=== PATIENT | male | born 1950 | race Caucasian/White ===

== ENCOUNTER 2016-06-12 08:55 | Outpatient (CLI) | payer MEDICAID ==
[~2016-06-12 08:55] MED LIST: FERRIC CARBOXYMALTOSE 750 MG in NORMAL SALINE 250 ML IV PRN; NORMAL SALINE 250 ML IV PRN
[2016-06-12 09:18] VITALS: BP 140/84
== END 2016-06-12 09:46 | disposition home or self-care (01) ==
LOC: II 08:55
PROVIDERS: ATTEND Internal Medicine
PROC: 3E033GC Introduction of Other Therapeutic Substance into Peripheral Vein, Percutaneous Approach (ICD-10-PCS; principal; 2016-06-12)
DX: D50.8 Other iron deficiency anemias (principal); K90.9 Intestinal malabsorption, unspecified
CPT/HCPCS: 96374; J7050; J1439; 96365

== ENCOUNTER → 2016-08-07 | Outpatient (CLI) | payer MEDICAID | LOC: RAD 07:32 | PROVIDERS: ATTEND Internal Medicine | DX: C34.11 Malignant neoplasm of upper lobe, right bronchus or lung (principal) | CPT/HCPCS: 71250; 74176 ==

== ENCOUNTER → 2016-09-19 | Outpatient (CLI) | payer MEDICARE, MEDICAID | LOC: RAD 08:25 | PROVIDERS: ATTEND Internal Medicine | DX: C34.11 Malignant neoplasm of upper lobe, right bronchus or lung (principal) | CPT/HCPCS: 78815; A9552 ==

== ENCOUNTER → 2017-02-15 | Outpatient (CLI) | payer MEDICAID, MEDICARE ==
--- NOTE | 2017-02-16 10:19 | RADIOLOGY REPORT (SQ) ---
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 TECHNIQUE: Blood glucose level was verified. Above dose of FDG was injected intravenously. 2-D seg mented attenuation correction images were obtained from the base of the skull to the midthighs. Nonc ontrast CT images were obtained for attenuation correction and fusion with emission images. CT image s were performed without oral or intravenous contrast and are not sensitive for parenchymal lesions. A series of overlapping emission PET images were obtained. Images reviewed and manipulated at [facility] by the radiologist. Images stored on PACS. LIMITATIONS: None. FINDINGS: HEAD AND NECK: No areas of abnormal metabolic activity in the soft tissues of the head and neck. CHEST: Bandlike scarring in the right upper lobe adjacent to the apical segmental bronchus, smaller i n size and decreased in metabolic activity compared to PET-CT 09/06/2016. Currently this measures 3.5 x 1.6 cm on axial image 61, with SUV 2.6 (was 4.8 x 2 cm with SUV 3.1 on 09/06/2016). No metabolically active hilar or mediastinal lymph nodes. ABDOMEN AND PELVIS: There is diffuse colon uptake worrisome for active inflammatory bowel disease, co lonic activity measures between 5 and 8 SUV from the cecum to the rectum. There is loss of haustra, findings may represent chronic ulcerative colitis. PROXIMAL LOWER EXTREMITIES: Over the right gluteal region, a chronic seroma is present. Along the mathis perior and lateral edge of the seroma, a 3.5 x 2.3 cm more solid-appearing nodule is present on axial image 163. This has SUV of 3.1. This represents a change from previous studies BONES: No abnormal metabolic activity in the visualized skeleton. ADDITIONAL CT FINDINGS: Small right pleural effusion, new compared to previous exams. Stable calcifi ed carotid bifurcations and coronary arteries. Old healed right rib fractures. OTHER: Liver baseline SUV 2.6. Blood pool baseline SUV 1.8. IMPRESSION: Decrease in size and metabolic activity of the right upper lobe mass compared to previou s studies. Diffuse abnormal: Increased uptake, worrisome for diffuse colitis Soft tissue nodule along the superior and lateral aspect of the right gluteal region seroma/hematoma. This now has metabolic activity SUV 3.1. TECHNICAL DOCUMENTATION: JOB ID: [id number] [employer]- All Rights Reserved
== END ==
LOC: RAD 15:12
PROVIDERS: ATTEND Internal Medicine
DX: C34.11 Malignant neoplasm of upper lobe, right bronchus or lung (principal)
CPT/HCPCS: 78815; A9552

== ENCOUNTER → 2017-05-26 | Outpatient (CLI) | payer MEDICARE, MEDICAID ==
--- NOTE | 2017-05-27 10:24 | RADIOLOGY REPORT (SQ) ---
EXAM DESCRIPTION: PET CT SKULL/THIGH COMPLETED DATE/TIME: 05/26/2017 8:08 pm REASON FOR STUDY: LUNG CA C34.11 MALIGNANT NEOPLASM OF UPPER LOBE, RIGHT BRONCHUS OR L COMPARISON: PET-CT 02/15/2017, 09/19/2016, 04/28/2016 CT chest abdomen pelvis 08/07/2016 RADIONUCLIDE AND DOSE: 9.7 mCi F18 FDG The route of agent administration: Intravenous FASTING BLOOD SUGAR: 90 mg/dl CONTRAST TYPE AND DOSE: No CT contrast given. TECHNIQUE: Blood glucose level was verified. Above dose of FDG was injected intravenously. 2-D seg mented attenuation correction images were obtained from the base of the skull to the midthighs. Nonc ontrast CT images were obtained for attenuation correction and fusion with emission images. CT image s were performed without oral or intravenous contrast and are not sensitive for parenchymal lesions. A series of overlapping emission PET images were obtained. Images reviewed and manipulated [facility] by the radiologist. Images stored on PACS. LIMITATIONS: None. FINDINGS: HEAD AND NECK: No areas of abnormal metabolic activity in the soft tissues of the head and neck. CHEST: Persistent right upper lobe bandlike scarring is present, 3.3 x 1.6 cm in size on axial image 50 with SUV of 2.7 to 2.8. This is stable compared to 02/15/2017, and significantly smaller than on and 04/28/2016. There is a small right pleural effusion without right sided pleural activity. Several small prevascu lar, paratracheal, precarinal, and subcarinal lymph nodes are present, non metabolically active and l ess than 1 cm in short axis. ABDOMEN AND PELVIS: There is diffuse colonic activity worrisome for chronic colitis, ranging from 4 t o 11 SUV. There is bandlike increased activity in the right inguinal region along the scan and subcutaneous fat , along an area about 7 x 1 cm in size. This has increased uptake of 6.8 to 7.2. This is new compar ed to 09/19/2016. This was present although less intense on 02/15/2017, I thought this may have repres ented contamination on the skin from urine containing residual FDG activity. There is a 8 4.2 x 2.3 cm nodule along the left perineum along the skin, axial image 240 with SUV 12. 4. This is new compared to 09/19/2016. This is more prominent than on 02/15/2017 PET-CT, where I thou ght this was skin contamination from FDG in the urine. There is a chronic seroma over the right gluteal region with minimal metabolic activity along its sup erior aspect, with SUV 3.9. This is similar compared to prior PET-CT 02/15/2017. There are adjacent small subcutaneous nodules in the right upper gluteal region on axial image 148 and 154 which are non metabolic. PROXIMAL LOWER EXTREMITIES: No areas of abnormal metabolic activity in the soft tissues of the lower extremities. BONES: No abnormal metabolic activity in the visualized skeleton. ADDITIONAL CT FINDINGS: Liver background activity 2.6 SUV. Blood pool background activity 2.2 SUV OTHER: No other significant findings. IMPRESSION: Stable appearance of the right upper lobe lung apex in the area of prior tumor, as jass red to 02/15/2017 and 09/06/2016 Small right pleural effusion, no right pleural increased metabolic activity Diffuse abnormal colonic activity worrisome for chronic colitis Right inguinal and perineal skin hypermetabolic lesions of uncertain etiology Stable minimal increased metabolic activity along superior edge of the right gluteal seroma TECHNICAL DOCUMENTATION: JOB ID: [id number] [employer]- All Rights Reserved
== END ==
LOC: RAD 15:59
PROVIDERS: ATTEND Internal Medicine
DX: C34.11 Malignant neoplasm of upper lobe, right bronchus or lung (principal)
CPT/HCPCS: 78815; A9552

== ENCOUNTER → 2017-08-21 | Outpatient (CLI) | payer MEDICARE, MEDICAID ==
--- NOTE | 2017-08-21 11:40 | RADIOLOGY REPORT (SQ) ---
EXAM DESCRIPTION: CT CHEST WITHOUT COMPLETED DATE/TIME: 08/21/2017 10:42 am REASON FOR STUDY: C34.11 MALIGNANT NEOPLASM OF UPPER LOBE, RIGHT BRONCHUS OR LUNG C34.11 MALIGNANT NEOPLASM OF UPPER LOBE, RIGHT BRONCHUS OR L COMPARISON: 08/07/2016 TECHNIQUE: CT scan performed of the chest without intravenous contrast. Images reviewed with lung, soft tissue and bone windows. Reconstructed coronal and sagittal MPR images reviewed. All images st ored on PACS. All CT scanners at this facility use dose modulation, iterative reconstruction, and/or weight based d osing when appropriate to reduce radiation dose to as low as reasonably achievable (ALARA). [facility]: Dose Right [facility]: CareDose [facility]: Dose Right [facility]: Teradose 4D [facility]: [employer] RADIATION DOSE: CT Rad equipment meets quality standard of care and radiation dose reduction techniq ues were employed. CTDIvol: 15.3 mGy. DLP: 557 mGy-cm. mGy. LIMITATIONS: No technical limitations. FINDINGS: LUNGS AND PLEURA: There is a small right pleural effusion. There is a mass in the right u pper lobe that extends to the hilum. This shows improvement compared to the earlier study at this ti me and there is the appearance of soft tissue density that somewhat surrounds the portion of aerated lung. This is seen on image 20 and image 21. The anterior portion of this density on image 21 measu res 32 mm in transverse diameter versus 20 mm in AP diameter. The smaller density more posteriorly l ocated measures 11 x 20 mm on image 20. As stated above, both of these areas of density become confl uent with the right hilum. On the coronal and sagittal images improvement can be seen. Present in i mage 57 there is a spiculated nodule that measures 25 x 21 mm and is associated with the fissure. On the lung window settings this shows a density of 35 Hounsfield units. This abuts the dome of the di aphragm. This is not identified on the earlier study. There are no findings in left lung. HILAR AND MEDIASTINAL STRUCTURES: No significant hilar or mediastinal adenopathy is appreciated. HEART AND VASCULAR STRUCTURES: No aneurysm. No pericardial effusion. UPPER ABDOMEN: No significant findings. Limited exam. THYROID AND OTHER SOFT TISSUES: No masses. No adenopathy. BONES: No obvious osseous metastases are present. HARDWARE: None in the chest. OTHER: No other significant findings. IMPRESSION: There is somewhat of a mixed picture. The primary mass in the right upper lobe is small er. However, there is is 2nd area of density posterior to the mass as described which represents a n ew finding. There is also a density associated with the fissure that abuts the right hemidiaphragm t hat is not identified on the prior study. There is also a small right pleural effusion. Overall the re is a worsening of disease. Consider PET-CT. TECHNICAL DOCUMENTATION: JOB ID: [id number] Quality ID # [id number]: Final reports with documentation of one or more dose reduction techniques (e.g., Au tomated exposure control, adjustment of the mA and/or kV according to patient size, use of iterative reconstruction technique) 2010 [employer]- All Rights Reserved Reading location - IP/workstation name: [email or web address]
== END ==
LOC: RAD 10:34
PROVIDERS: ATTEND Internal Medicine
DX: C34.11 Malignant neoplasm of upper lobe, right bronchus or lung (principal)
CPT/HCPCS: 71250

== ENCOUNTER → 2017-08-30 | Outpatient (CLI) | payer MEDICARE, MEDICAID ==
--- NOTE | 2017-09-01 09:06 | RADIOLOGY REPORT (SQ) ---
EXAM DESCRIPTION: PET CT SKULL/THIGH COMPLETED DATE/TIME: 08/31/2017 6:37 pm REASON FOR STUDY: LUNG CA (C34.11) C34.11 MALIGNANT NEOPLASM OF UPPER LOBE, RIGHT BRONCHUS OR L COMPARISON: 05/26/2017 RADIONUCLIDE AND DOSE: 9.5 mCi F18 FDG The route of agent administration: Intravenous FASTING BLOOD SUGAR: 96 mg/dl CONTRAST TYPE AND DOSE: No CT contrast given. TECHNIQUE: Blood glucose level was verified. Above dose of FDG was injected intravenously. 2-D seg mented attenuation correction images were obtained from the base of the skull to the midthighs. Nonc ontrast CT images were obtained for attenuation correction and fusion with emission images. CT image s were performed without oral or intravenous contrast and are not sensitive for parenchymal lesions. A series of overlapping emission PET images were obtained. Images reviewed and manipulated at [facility] work station by the radiologist. Images stored on PACS. LIMITATIONS: None. FINDINGS: HEAD AND NECK: No areas of abnormal metabolic activity in the soft tissues of the head and neck. CHEST: Stable area of scarring right upper lobe with SUV in the 2.5 range. No hypermetabolic or path ologically enlarged lymph nodes. Stable small right pleural effusion. ABDOMEN AND PELVIS: Diffuse colonic activity is unchanged. PROXIMAL LOWER EXTREMITIES: No areas of abnormal metabolic activity in the soft tissues of the lower extremities. BONES: No abnormal metabolic activity in the visualized skeleton. ADDITIONAL CT FINDINGS: Small chronic seroma over the right gluteal region, not significantly hyperme tabolic. OTHER: No other significant findings. IMPRESSION: Stable appearance of the right upper lobe. No evidence of metastatic disease. TECHNICAL DOCUMENTATION: JOB ID: [id number]- All Rights Reserved Reading location - IP/workstation name: [email or web address]
== END ==
LOC: RAD 16:40
PROVIDERS: ATTEND Internal Medicine
DX: C34.11 Malignant neoplasm of upper lobe, right bronchus or lung (principal)
CPT/HCPCS: 78815; A9552

== ENCOUNTER 2017-11-24 08:16 | Day surgery (SDC) | payer MEDICARE, MEDICAID ==
[~2017-11-24 08:16] MED LIST changes: +FENTANYL CITRATE INJ/PF 100 MCG/2 ML AMPUL ONE; -FERRIC CARBOXYMALTOSE 750 MG in NORMAL SALINE 250 ML IV PRN; +KETOROLAC TROMETHAMINE 0.45% 4 DROP/0.4 ML DROPERETTE OD PRN; +MIDAZOLAM 2 MG/2 ML INJ ONE; -NORMAL SALINE 250 ML IV PRN
[2017-11-24] MEDS ORDERED: ALBUTEROL SULFATE 0.083% NEB 2.5 MG/3 ML AMPUL NEB ONE (08:41)
[2017-11-24] MEDS: CYCLOPENTOLATE 0.2%/PHENYLEPHRINE 1% OPH SOLN 2 ML OD PRN ×3 (08:42→09:03)
[2017-11-24] MEDS: TROPICAMIDE 1% OPH SOLN 3 ML OD PRN ×3 (08:42→09:03)
[2017-11-24] MEDS: BESIFLOXACIN HCL 0.6% OPH SUSP 5 ML BOTTLE OD PRN ×4 (08:42→09:46)
[2017-11-24] MEDS: TETRACAINE HCL 0.5% OPH SOLN 0.6 ML DROPERETTE OD PRN ×3 (08:43→09:08)
[2017-11-24] MEDS: LIDOCAINE 4% INJ/PF (40 MG/ML) 5 ML AMPUL OD PRN ×2 (09:11)
[2017-11-24] MEDS: BUPIVACAINE HCL 0.75% INJ/PF (7.5 MG/1 ML) 10 ML SDV OD PRN ×2 (09:11)
[2017-11-24] MEDS: CHONDR SU A NA/HYALUR INTRAOC KIT (SURGICARE) ONE ×2 (09:32)
[2017-11-24] MEDS: EPINEPHRINE INJ/PF 1 MG/1 ML AMPULE ONE ×2 (09:32)
[2017-11-24] MEDS: LIDOCAINE 1%/PHENYLEPHRINE 1.5% 1 ML VIAL ONE ×2 (09:32)
[2017-11-24] MEDS ORDERED: LIDOCAINE 2% INJ-PF (20 MG/ML) 10 ML AMPUL ONE (09:52)
--- NOTE | 2017-11-24 15:20 | [facility] OPERATIVE REPORT E ---
[facility] Operative Report NAME: FRANCESCO MARIANO AGE: 67Y DATE OF SURGERY: 11/24/2017 ROOM: PREOPERATIVE DIAGNOSIS: CATARACT, RIGHT EYE. POSTOPERATIVE DIAGNOSIS: CATARACT, RIGHT EYE. OPERATION: Phacoemulsification with posterior chamber intraocular lens, right eye. SURGEON: BLANK PHILLIPS M.D. ANESTHESIA: Topical with MAC. INDICATIONS FOR SURGERY: Difficulty reading and seeing people's faces. Best correct visual acuity 20/80. PROCEDURE: The patient was brought to the Operating Room and placed on the operative table. Following tetracaine drops, topical anesthesia was administered. This consisted of instrument wipe pledgets soaked in a solution of 4% Xylocaine mixed with 0.75% Marcaine in a 1:2 ratio. A 2 x 1 cm pledget was placed in the superior fornix. A 1 x 1 cm pledget was placed in the inferior fornix. The eye was patched shut for 5 minutes. The patch was removed. The eye was sterilely prepped and draped in the usual manner. Lid speculum was placed in the eye. The pledgets were removed. 4-0 black silk sutures were placed around the superior and the inferior rectus muscles to be used as traction. A conjunctival peritomy was made at the 10 o'clock position. Hemostasis was obtained with bipolar cautery. A posterior limbal groove was created using a crescent knife and dissected anteriorly towards the cornea. A sharp point blade was used to create a paracentesis site at the 2 o'clock position. A 2.4 mm keratome was used to enter the anterior chamber through the groove. Viscoelastic was injected into the anterior chamber. An anterior capsulotomy was performed using Utrata forceps in a capsulorrhexis fashion. Hydrodissection and hydrodelineation were performed. Phacoemulsification was performed in apsydj-oat-arnvbgn technique. A total of 5.59 CDE was used. Following this, the I/A unit was used to remove residual cortex. Viscoelastic was injected into the capsular bag. Intraocular lens model [id number], 20.0 diopters, serial number [id number] was placed in the capsular bag. The I/A unit was used to remove residual viscoelastic. The wound was seen to be watertight under high and low pressure, and no sutures were placed. The intraocular lens was well centered. The pressure was adjusted in the eye to normal pressure. The 4-0 black silk sutures and lid speculum were removed. The eye was shielded after Besivance drops were placed. The patient tolerated the procedure well and was sent to the Recovery Room in good condition. DICTATING PHYSICIAN: BLANK PHILLIPS M.D. DICTATING PHYSICIAN: BLANK PHILLIPS M.D. [id number] PHY#: [id number] ID: [id number] JOB#: [id number] ACCT: [id number] cc:BLANK PHILLIPS M.D. >
--- NOTE | 2017-11-24 15:21 | [facility] DISCHARGE SUMMARY E ---
[facility] Discharge Summary NAME: FRANCESCO MARIANO AGE: 67Y ADMITTED: 11/24/2017 DISCHARGED: 11/24/2017 HOSPITAL COURSE: This patient is a 67-year-old gentleman who underwent an uneventful cataract extraction with intraocular lens implant, right eye, on 11/24/2017. He will be discharged to home. He is instructed to resume preoperative medications, to take Tylenol as needed for discomfort, to keep his eye shielded, to use Besivance, Durezol and Ilevro at 3 p.m. and 8 p.m., and to follow up in my office in 1 day. DICTATING PHYSICIAN: BLANK PHILLIPS M.D. [id number] PHY#: [id number] ID: [id number] JOB#: [id number] ACCT: [id number] cc:BLANK PHILLIPS M.D. >
== END 2017-11-24 10:34 | disposition home or self-care (01) ==
LOC: SC 08:16
PROVIDERS: ATTEND Ophthalmology
DX: H25.13 Age-related nuclear cataract, bilateral (principal); H40.053 Ocular hypertension, bilateral; H57.03 Miosis; E11.9 Type 2 diabetes mellitus without complications; E78.00 Pure hypercholesterolemia, unspecified; J44.9 Chronic obstructive pulmonary disease, unspecified; Z87.891 Personal history of nicotine dependence; Z79.84 Long term (current) use of oral hypoglycemic drugs; Z79.899 Other long term (current) drug therapy; Z79.51 Long term (current) use of inhaled steroids; Z88.1 Allergy status to other antibiotic agents; Z85.118 Personal history of other malignant neoplasm of bronchus and lung
CPT/HCPCS: 66984; 82962; V2632; J2250; J3490 ×4; A9270 ×2; J0171; J3010; J2370; 142

== ENCOUNTER → 2017-11-30 | Outpatient (CLI) | payer MEDICARE, MEDICAID ==
--- NOTE | 2017-11-30 10:46 | RADIOLOGY REPORT (SQ) ---
EXAM DESCRIPTION: CT CHEST WITHOUT COMPLETED DATE/TIME: 11/30/2017 9:00 am REASON FOR STUDY: LUNG CA (C34.11) C34.11 MALIGNANT NEOPLASM OF UPPER LOBE, RIGHT BRONCHUS OR L COMPARISON: 08/21/2017 and priors TECHNIQUE: CT scan performed of the chest without intravenous contrast. Images reviewed with lung, soft tissue and bone windows. Reconstructed coronal and sagittal MPR images reviewed. All images st ored on PACS. All CT scanners at this facility use dose modulation, iterative reconstruction, and/or weight based d osing when appropriate to reduce radiation dose to as low as reasonably achievable (ALARA). [facility]: Dose Right [facility]: CareDose [facility]: Dose Right [facility]: Teradose 4D [facility]: [employer] RADIATION DOSE: CT Rad equipment meets quality standard of care and radiation dose reduction techniq ues were employed. CTDIvol: 17.6 mGy. DLP: 639 mGy-cm. mGy. LIMITATIONS: No technical limitations. FINDINGS: LUNGS AND PLEURA: Stable right upper lobe mass and postradiation changes in the right hilu m. The density described previously in the right upper lobe is also stable. Interval PET-CT without metabolic activity in this area. Suggests findings related to treatment rather than new disease. R ight pleural effusions stable. HILAR AND MEDIASTINAL STRUCTURES: No identified masses or abnormal nodes. No obvious aneurysm. HEART AND VASCULAR STRUCTURES: Extensive coronary artery calcification. UPPER ABDOMEN: No significant findings. Limited exam. THYROID AND OTHER SOFT TISSUES: No masses. No adenopathy. BONES: No significant finding. HARDWARE: None in the chest. OTHER: No other significant findings. IMPRESSION: Stable appearance of the CT scan since the prior study. Interval negative PET-CT sugges anne findings are related to treatment rather than recurrent disease. Extensive coronary artery calcification. TECHNICAL DOCUMENTATION: JOB ID: [id number] Quality ID # 436: Final reports with documentation of one or more dose reduction techniques (e.g., Au tomated exposure control, adjustment of the mA and/or kV according to patient size, use of iterative reconstruction technique) 2010 [employer]- All Rights Reserved Reading location - IP/workstation name: [email or web address]
== END ==
LOC: RAD 08:39
PROVIDERS: ATTEND Physician Assistant Medical
DX: C34.11 Malignant neoplasm of upper lobe, right bronchus or lung (principal)
CPT/HCPCS: 71250

== ENCOUNTER 2017-12-15 09:11 | Day surgery (SDC) | payer MEDICARE, MEDICAID ==
[~2017-12-15 09:11] MED LIST changes: -FENTANYL CITRATE INJ/PF 100 MCG/2 ML AMPUL ONE; -KETOROLAC TROMETHAMINE 0.45% 4 DROP/0.4 ML DROPERETTE OD PRN; +KETOROLAC TROMETHAMINE 0.45% 4 DROP/0.4 ML DROPERETTE OS PRN; -MIDAZOLAM 2 MG/2 ML INJ ONE
[2017-12-15] MEDS: TETRACAINE HCL 0.5% OPH SOLN 0.6 ML DROPERETTE OS PRN ×2 (10:02→10:27)
[2017-12-15] MEDS: TROPICAMIDE 1% OPH SOLN 3 ML OS PRN ×3 (10:03→10:26)
[2017-12-15] MEDS: CYCLOPENTOLATE 0.2%/PHENYLEPHRINE 1% OPH SOLN 2 ML OS PRN ×3 (10:03→10:26)
[2017-12-15] MEDS: BESIFLOXACIN HCL 0.6% OPH SUSP 5 ML BOTTLE OS PRN ×4 (10:04→11:18)
[2017-12-15] MEDS ORDERED: ALBUTEROL SULFATE 0.083% NEB 2.5 MG/3 ML AMPUL NEB ONE (10:09)
[2017-12-15] MEDS ORDERED: FENTANYL CITRATE INJ/PF 100 MCG/2 ML AMPUL ONE (10:26)
[2017-12-15] MEDS ORDERED: MIDAZOLAM 2 MG/2 ML INJ ONE (10:26)
[2017-12-15] MEDS: LIDOCAINE 4% INJ/PF (40 MG/ML) 5 ML AMPUL OS PRN ×2 (10:45)
[2017-12-15] MEDS: BUPIVACAINE HCL 0.75% INJ/PF (7.5 MG/1 ML) 10 ML SDV OS PRN ×2 (10:45)
[2017-12-15] MEDS: CHONDR SU A NA/HYALUR INTRAOC KIT (SURGICARE) ONE ×2 (11:01)
[2017-12-15] MEDS: EPINEPHRINE INJ/PF 1 MG/1 ML AMPULE ONE ×2 (11:01)
[2017-12-15] MEDS: LIDOCAINE 1%/PHENYLEPHRINE 1.5% 1 ML VIAL ONE ×2 (11:01)
[2017-12-15] MEDS ORDERED: BRIMONIDINE TARTRATE 0.2% OPH SOLN 5 ML ONE (11:33)
--- NOTE | 2017-12-15 11:34 | [facility] OPERATIVE REPORT E ---
[facility] Operative Report NAME: FRANCESCO MARIANO AGE: 67Y DATE OF SURGERY: 12/15/2017 ROOM: PREOPERATIVE DIAGNOSIS: Cataract, left eye. POSTOPERATIVE DIAGNOSIS: Cataract, left eye. PROCEDURE PERFORMED: Phacoemulsification with posterior chamber intraocular lens, left eye. SURGEON: BLANK PHILLIPS M.D. ANESTHESIA: Topical with MAC. INDICATIONS FOR SURGERY: Difficulty reading small print and road signs. Best corrected visual acuity 20/80. PROCEDURE: The patient was brought to the Operating Room and placed on the operative table. Following tetracaine drops, topical anesthesia was administered. This consisted of instrument wipe pledgets soaked in a solution of 4% Xylocaine mixed with 0.75% Marcaine in a 1:2 ratio. A 2 x 1 cm pledget was placed in the superior fornix. A 1 x 1 cm pledget was placed in the inferior fornix. The eye was patched shut for 5 minutes. The patch was removed. The eye was sterilely prepped and draped in the usual manner. Lid speculum was placed in the eye. The pledgets were removed. 4-0 black silk sutures were placed around the superior and the inferior rectus muscles to be used as traction. A conjunctival peritomy was made at the 10 o'clock position. Hemostasis was obtained with bipolar cautery. A posterior limbal groove was created using a crescent knife and dissected anteriorly towards the cornea. A sharp point blade was used to create a paracentesis site at the 2 o'clock position. A 2.4 mm keratome was used to enter the anterior chamber through the groove. Viscoelastic was injected into the anterior chamber. An anterior capsulotomy was performed using Utrata forceps in a capsulorrhexis fashion. Hydrodissection and hydrodelineation were performed. Phacoemulsification was performed in bzlzzs-pwf-dfstrfq technique. A total of 6.96 CDE phaco time was used. Following this, the I/A unit was used to remove residual cortex. Viscoelastic was injected into the capsular bag. Intraocular lens model SN60WF, 20.0 diopters, serial number [id number] was placed in the capsular bag. The I/A unit was used to remove residual viscoelastic. The wound was seen to be watertight under high and low pressure, and no sutures were placed. The intraocular lens was well centered. The pressure was adjusted in the eye to normal pressure. The 4-0 black silk sutures and lid speculum were removed. The eye was shielded after Besivance drops were placed. The patient tolerated the procedure well and was sent to the Recovery Room in good condition. DICTATING PHYSICIAN: BLANK PHILLIPS M.D. [id number] PHY#: [id number] ID: [id number] JOB#: [id number] ACCT: [id number] cc:BLANK PHILLIPS M.D. >
--- NOTE | 2017-12-15 11:35 | [facility] DISCHARGE SUMMARY E ---
[facility] Discharge Summary NAME: FRANCESCO MARIANO AGE: 67Y ADMITTED: 12/15/2017 DISCHARGED: 12/15/2017 HOSPITAL COURSE: The patient is a 67-year-old gentleman who underwent uneventful cataract extraction with intraocular lens implant left eye on 12/15/2017. He will be discharged to home. He is instructed to resume preoperative medications, take Tylenol as needed for discomfort, to keep his eye shielded, to use Besivance, Durezol, Ilevro, and Alphagan at 3 p.m. and 8 p.m., and to follow up in my office in 1 day. DICTATING PHYSICIAN: BLANK PHILLIPS M.D. [id number] PHY#: [id number] ID: [id number] JOB#: [id number] ACCT: [id number] cc:BLANK PHILLIPS M.D. >
== END 2017-12-15 12:14 | disposition home or self-care (01) ==
LOC: SC 09:11
PROVIDERS: ATTEND Ophthalmology
PROC: 08RK3JZ Replacement of Left Lens with Synthetic Substitute, Percutaneous Approach (ICD-10-PCS; principal; 2017-12-15 10:30)
DX: H25.12 Age-related nuclear cataract, left eye (principal); E11.9 Type 2 diabetes mellitus without complications; J44.9 Chronic obstructive pulmonary disease, unspecified; Z87.891 Personal history of nicotine dependence
CPT/HCPCS: 82962; 66984; V2632; J2250; J3490 ×4; A9270 ×2; J0171; J3010; J2370; 142

== ENCOUNTER → 2018-03-04 | Outpatient (CLI) | payer MEDICAID, MEDICARE ==
--- NOTE | 2018-03-04 10:21 | RADIOLOGY REPORT (SQ) ---
EXAM DESCRIPTION: CT CHEST WITHOUT COMPLETED DATE/TIME: 03/04/2018 9:56 am REASON FOR STUDY: MALIGNANT NEOPLASM OF UPPER LOBE, RIGHT BRONCHUS OR LUNG C34.11 MALIGNANT NEOPLAS M OF UPPER LOBE, RIGHT BRONCHUS OR L COMPARISON: 11/30/2017 TECHNIQUE: CT scan performed of the chest without intravenous contrast. Images reviewed with lung, soft tissue and bone windows. Reconstructed coronal and sagittal MPR images reviewed. All images st ored on PACS. All CT scanners at this facility use dose modulation, iterative reconstruction, and/or weight based d osing when appropriate to reduce radiation dose to as low as reasonably achievable (ALARA). [facility]: Dose Right [facility]: CareDose [facility]: Dose Right [facility]: Teradose 4D [facility]: [employer] RADIATION DOSE: CT Rad equipment meets quality standard of care and radiation dose reduction techniq ues were employed. CTDIvol: 18.5 mGy. DLP: 673 mGy-cm. mGy. LIMITATIONS: No technical limitations. FINDINGS: LUNGS AND PLEURA: There is persistent right-sided pleural fluid with scarring in the right apex. There is scarring around the right hilum with residual adenopathy. There is scarring in the periphery of the right lung base. Left lung field is clear and unchanged. HILAR AND MEDIASTINAL STRUCTURES: There is persistent subcarinal and right hilar adenopathy stable fr om prior study. HEART AND VASCULAR STRUCTURES: No pericardial effusion. There is extensive coronary artery calcifica tion. UPPER ABDOMEN: No significant findings. Limited exam. THYROID AND OTHER SOFT TISSUES: Thyroid gland is unremarkable. There are small lymph nodes in the ri ght axilla. These are nonspecific. BONES: No significant finding. HARDWARE: None in the chest. OTHER: No other significant findings. IMPRESSION: Stable CT of the chest as described. TECHNICAL DOCUMENTATION: JOB ID: [id number] Quality ID # [id number]: Final reports with documentation of one or more dose reduction techniques (e.g., Au tomated exposure control, adjustment of the mA and/or kV according to patient size, use of iterative reconstruction technique) 2010 [employer]- All Rights Reserved Reading location - IP/workstation name: [email or web address]
== END ==
LOC: RAD 09:37
PROVIDERS: ATTEND Physician Assistant Medical
DX: C34.11 Malignant neoplasm of upper lobe, right bronchus or lung (principal)
CPT/HCPCS: 71250

== ENCOUNTER → 2018-07-06 | Outpatient (CLI) | payer MEDICAID, MEDICARE ==
--- NOTE | 2018-07-06 10:33 | RADIOLOGY REPORT (SQ) ---
EXAM DESCRIPTION: CT CHEST WITHOUT COMPLETED DATE/TIME: 07/06/2018 9:24 am REASON FOR STUDY: LUNG CA C34.11 MALIGNANT NEOPLASM OF UPPER LOBE, RIGHT BRONCHUS OR L COMPARISON: 03/04/2018 TECHNIQUE: CT scan performed of the chest without intravenous contrast. Images reviewed with lung, soft tissue and bone windows. Reconstructed coronal and sagittal MPR images reviewed. All images st ored on PACS. All CT scanners at this facility use dose modulation, iterative reconstruction, and/or weight based d osing when appropriate to reduce radiation dose to as low as reasonably achievable (ALARA). [facility]: Dose Right [facility]: CareDose [facility]: Dose Right [facility]: Teradose 4D [facility]: [employer] RADIATION DOSE: CT Rad equipment meets quality standard of care and radiation dose reduction techniq ues were employed. CTDIvol: 16.5 mGy. DLP: 643 mGy-cm. mGy. LIMITATIONS: No technical limitations. FINDINGS: LUNGS AND PLEURA: Rind of consolidation in the right upper lobe is unchanged. This was no t hypermetabolic on PET 08/31/2017. Chronic small right pleural effusion and ipsilateral volume loss. Left lung is clear. HILAR AND MEDIASTINAL STRUCTURES: No identified masses or abnormal nodes. No obvious aneurysm. HEART AND VASCULAR STRUCTURES: No aneurysm. No pericardial effusion. UPPER ABDOMEN: No acute findings. Limited exam. THYROID AND OTHER SOFT TISSUES: No masses. No adenopathy. BONES: Nothing acute. HARDWARE: None in the chest. OTHER: No other significant findings. IMPRESSION: Stable consolidation right upper lobe. This was not hypermetabolic on PET 08/31/2017. TECHNICAL DOCUMENTATION: JOB ID: [id number] Quality ID # [id number]: Final reports with documentation of one or more dose reduction techniques (e.g., Au tomated exposure control, adjustment of the mA and/or kV according to patient size, use of iterative reconstruction technique) 2010 [employer]- All Rights Reserved Reading location - IP/workstation name: [email or web address]
== END ==
LOC: RAD 09:14
PROVIDERS: ATTEND Internal Medicine
DX: C34.11 Malignant neoplasm of upper lobe, right bronchus or lung (principal)
CPT/HCPCS: 71250

== ENCOUNTER → 2018-10-29 | Outpatient (CLI) | payer MEDICARE ==
--- NOTE | 2018-10-29 09:02 | RADIOLOGY REPORT (SQ) ---
EXAM DESCRIPTION: CT CHEST WITHOUT COMPLETED DATE/TIME: 10/29/2018 8:43 am REASON FOR STUDY: MALIGNANT NEOPLASM OF UPPER LOBE, RIGHT BRONCHUS OR LUNG C34.11 MALIGNANT NEOPLAS M OF UPPER LOBE, RIGHT BRONCHUS OR L COMPARISON: 07/06/2018 TECHNIQUE: CT scan performed of the chest without intravenous contrast. Images reviewed with lung, soft tissue and bone windows. Reconstructed coronal and sagittal MPR images reviewed. All images st ored on PACS. All CT scanners at this facility use dose modulation, iterative reconstruction, and/or weight based d osing when appropriate to reduce radiation dose to as low as reasonably achievable (ALARA). [facility]: Dose Right [facility]: CareDose [facility]: Dose Right [facility]: Teradose 4D [facility]: [employer] RADIATION DOSE: CT Rad equipment meets quality standard of care and radiation dose reduction techniq ues were employed. CTDIvol: 16.0 mGy. DLP: 576 mGy-cm. mGy. LIMITATIONS: No technical limitations. FINDINGS: LUNGS AND PLEURA: The cavitary mass in the right lung apex is measured 5.1 x 4.1 cm. Ther e is been no significant change from prior study. Right pleural effusion is smaller in size. Consol idation extends from the right upper lobe to the right hilum this is unchanged as well. Stable scarr ing in the right lung base. HILAR AND MEDIASTINAL STRUCTURES: Enlarged subcarinal lymph nodes are again noted. These are stable. The largest measures 1.6 cm. HEART AND VASCULAR STRUCTURES: No pericardial effusion. Extensive coronary artery calcification. UPPER ABDOMEN: No significant findings. Limited exam. THYROID AND OTHER SOFT TISSUES: No masses. No adenopathy. BONES: No significant finding. HARDWARE: None in the chest. OTHER: No other significant findings. IMPRESSION: Persisting chronic changes in the right apex. No significant interval change from prior study other than decrease in size of the right pleural effusion. TECHNICAL DOCUMENTATION: JOB ID: [id number] Quality ID # [id number]: Final reports with documentation of one or more dose reduction techniques (e.g., Au tomated exposure control, adjustment of the mA and/or kV according to patient size, use of iterative reconstruction technique) 2010 [employer]- All Rights Reserved Reading location - IP/workstation name: [email or web address]
== END ==
LOC: RAD 08:28
PROVIDERS: ATTEND Internal Medicine
DX: C34.11 Malignant neoplasm of upper lobe, right bronchus or lung (principal)
CPT/HCPCS: 71250

== ENCOUNTER → 2019-05-02 | Outpatient (CLI) | payer MEDICARE ==
--- NOTE | 2019-05-02 09:22 | RADIOLOGY REPORT (SQ) ---
EXAM DESCRIPTION: CT CHEST WITHOUT COMPLETED DATE/TIME: 05/02/2019 8:40 am REASON FOR STUDY: LUNG CA (C34.11) C34.11 MALIGNANT NEOPLASM OF UPPER LOBE, RIGHT BRONCHUS OR L COMPARISON: 10/29/2018 and priors TECHNIQUE: CT scan performed of the chest without intravenous contrast. Images reviewed with lung, soft tissue and bone windows. Reconstructed coronal and sagittal MPR images reviewed. All images st ored on PACS. All CT scanners at this facility use dose modulation, iterative reconstruction, and/or weight based d osing when appropriate to reduce radiation dose to as low as reasonably achievable (ALARA). [facility]: Dose Right [facility]: CareDose [facility]: Dose Right [facility]: Teradose 4D [facility]: [employer] RADIATION DOSE: CT Rad equipment meets quality standard of care and radiation dose reduction techniq ues were employed. CTDIvol: 17.5 mGy. DLP: 744 mGy-cm. mGy. LIMITATIONS: No technical limitations. FINDINGS: LUNGS AND PLEURA: Right upper lobe mass is stable. Right pleural effusion is stable. Lef t lung remains clear. HILAR AND MEDIASTINAL STRUCTURES: Stable 1.6 cm subcarinal node. No new nodes. HEART AND VASCULAR STRUCTURES: Marked coronary artery calcification. UPPER ABDOMEN: No significant finding THYROID AND OTHER SOFT TISSUES: No masses. No adenopathy. BONES: No significant finding. HARDWARE: None in the chest. OTHER: No other significant findings. IMPRESSION: Stable appearance of the right lung with right apical mass in right pleural effusion. Marked coronary artery calcification. TECHNICAL DOCUMENTATION: JOB ID: [id number] Quality ID # [id number]: Final reports with documentation of one or more dose reduction techniques (e.g., Au tomated exposure control, adjustment of the mA and/or kV according to patient size, use of iterative reconstruction technique) 2010 [employer]- All Rights Reserved Reading location - IP/workstation name: [email or web address]
== END ==
LOC: RAD 08:23
PROVIDERS: ATTEND Physician Assistant Medical
DX: C34.11 Malignant neoplasm of upper lobe, right bronchus or lung (principal)
CPT/HCPCS: 71250

== ENCOUNTER 2019-06-13 10:25 | Inpatient (IN) | payer MEDICARE ==
[2019-06-13] MEDS ORDERED: METHYLPREDNISOLONE INJ 125 MG/2 ML SDV IV ONE (10:49)
--- NOTE | 2019-06-13 10:55 | ER Document Report ---
ED General - General Chief Complaint: Leg Swelling Stated Complaint: LEG/FEET PAIN, SWELLING,SHORT OF BREATH TRAVEL OUTSIDE OF THE [place] IN LAST 30 DAYS: No - HPI Notes: 68m history of COPD on home oxygen nightly only on Ventolin no chronic steroids presents with for shortness of breath really been going on for 3 days and he has been refusing to come to the ER until today his looked worse he had told on Thursday that his chest was hurting. He also had mentioned in the last few days that his abdomen felt like it was more full than usual more tight and protuberant. Denies any passing out no fevers he is noticed no vomiting he has had swelling overall in his legs he does not have a history of heart failure he says. - Related Data Allergies/Adverse Reactions: vancomycin Allergy (Verified 11/17/17 15:09) Generalized rash Past Medical History - Social History Smoking Status: Current Some Day Smoker Family History: Reviewed & Not Pertinent - Past Medical History Cardiac Medical History: Denies: Hx Heart Attack - [id number] MESSED UP, Hx Hypertension Pulmonary Medical History: Denies: Hx Asthma Neurological Medical History: Denies: Hx Cerebrovascular Accident, Hx Seizures GI Medical History: Denies: Hx Hepatitis, Hx Hiatal Hernia, Hx Ulcer Infectious Medical History: Denies: Hx Hepatitis Past Surgical History: Denies: Hx Open Heart Surgery, Hx Pacemaker - Immunizations Hx Diphtheria, Pertussis, Tetanus Vaccination: No Review of Systems - Review of Systems Constitutional: See HPI, Malaise. denies: Chills, Diaphoresis, Fever, Weight gain, Weight loss, Recent illness EENT: No symptoms reported Cardiovascular: See HPI, Dyspnea, Edema - no change in chronic ble. denies: Chest pain, Palpitations, Heart racing, Syncope Respiratory: See HPI, Cough, Sputum, Wheezing. denies: Hurts to breathe, Hemoptysis, Stridor Gastrointestinal: No symptoms reported Genitourinary: No symptoms reported Male Genitourinary: No symptoms reported Musculoskeletal: No symptoms reported Skin: No symptoms reported Hematologic/Lymphatic: No symptoms reported Neurological/Psychological: No symptoms reported Physical Exam - Vital signs Vitals: Temp Pulse Resp BP Pulse Ox 97.6 F 89 18 121/59 L 70 L 06/13/19 10:34 06/13/19 10:34 06/13/19 10:34 06/13/19 10:34 06/13/19 10:34 Interpretation: Hypoxic. No: Febrile - Notes Notes: On arrival to triage 60% SPO2 in RA therefore immediately taken to Tr2 ED room where I evaluated him there immediately, still 60% RA w/ good wave form, preferring to sit upright nonproductive cough. RR mid upper 20s, therefore placed on 3 L nasal cannula did increase to 92% but he had very diminished ventilation in all lung barnes with very very faint inspiratory expiratory wheeze during these short ventilation periods. he reported feeling improved even jsut on 3L nc but bipap initiated given resp distress. - General General appearance: Alert, Anxious. No: Combative In distress: Severe - HEENT Head: Normocephalic, Atraumatic Eyes: Normal. No: Pale conjunctiva, Scleral icterus Conjunctiva: No: Injected, Purulent discharge Extraocular movements intact: Yes Eyelashes: Normal Pupils: PERRL Nerve palsy: No Sinus: Normal Nasal: Normal Mouth/Lips: Normal. No: Lesions Mucous membranes: Dry Pharynx: Normal Neck: Normal - Respiratory Respiratory status: Respiratory distress, Labored, Retractions, Tachypnea, Tripod position. No: Cyanosis Chest status: Nontender. No: Ecchymosis, Pain with cough, Pain with deep breathing, Wounds, Splinting Breath sounds: Decreased air movement, Nonproductive cough, Rales - distant, Wheezing - distant biphasic Chest palpation: Normal. No: Subcutaneous emphysema, Ecchymosis, Wounds - Cardiovascular Rhythm: Regular Heart sounds: Normal auscultation Murmur: No Pulses: Normal: Radial, Dorsalis pedis Normal capillary refill: Yes - all ext symm, wwp no pitting edema - Abdominal Inspection: Normal Distension: No distension Bowel sounds: Normal Tenderness: Nontender Organomegaly: No organomegaly - Back Back: Normal, Nontender - Extremities General upper extremity: Normal inspection, Nontender, Normal color, Normal ROM, Normal temperature General lower extremity: Normal inspection, Nontender, Normal color, Normal ROM, Normal temperature, Normal weight bearing. No: Romy's sign - Neurological Neuro grossly intact: Yes Cognition: Normal Orientation: AAOx4 Bla[place] Coma Scale Eye Opening: Spontaneous [place] Coma Scale Verbal: Oriented [place] Coma Scale Motor: Obeys Commands [place] Coma Scale Total: 15 Speech: Normal Motor strength normal: LUE, RUE, LLE, RLE Sensory: Normal - Psychological Associated symptoms: Normal affect, Normal mood - Skin Skin Temperature: Warm Skin Moisture: Dry Skin Color: Normal Course - Re-evaluation Re-evalutation: 06/13/19 10:55 On arrival to triage he was 60% SPO2, which he remained when he arrived in the room in the ED when I evaluated him immediately. Placed him on 3 L nasal cannula he did increase to 92% he had very diminished ventilation in all lung barnes with very very faint inspiratory expiratory wheeze during these short ventilation periods. His R he started feeling a little better. Cephalization and some layering effusion mostly on the right is elevated right hemidiaphragm that is not is not new today but does have blunting of the right cardio phrenic and costophrenic borders otherwise diffusely in bilateral lung bases with evidence of cephalization has some pulmonary interstitium edema. In the right upper lobe there is a infiltrate new today but does have blunt that it appears some what regular and shape on this single plain film. 11:30 AM we decrease his BiPAP from 40% to 30% he was 97% blood pressure 130s over 70s. Heart rate in 80s. He looks much more comfortable very minimal opening of his inspiratory and expiratory phases still very distant lung sounds. But I think at this point on his second breathing treatment he is improving some. Also ordered magnesium IV. adm to onwe imcu - Vital Signs Vital signs: Temp Pulse Resp BP Pulse Ox 98.4 F 77 16 111/62 98 06/21/19 13:51 06/21/19 13:51 06/21/19 13:51 06/21/19 13:51 06/21/19 13:51 - Laboratory Result Diagrams: 06/15/19 05:59 06/15/19 05:59 Laboratory results interpreted by me: 06/13/19 06/13/19 06/13/19 10:51 10:51 10:51 RDW 16.0 H Lymph % (Auto) 11.4 L Sodium 133.5 L Chloride 89 L Carbon Dioxide 39 H Glucose 148 H NT-Pro-B Natriuret Pep 2960 H Critical Care Note - Critical Care Note Total time excluding time spent on procedures (mins): 60 Discharge - Discharge Clinical Impression: Hypoxia, COPD exacerbation Pulmonary edema Qualifiers: Chronicity: acute Qualified Code(s): J81.0 - Acute pulmonary edema Condition: Poor Disposition: ADMITTED INPATIENT Admitting Provider: Lynn (Hospitalist) Unit Admitted: [facility]
[2019-06-13] MEDS: IPRATROPIUM/ALBUTEROL 0.5-2.5 MG/3 ML AMPUL NEB PRN ×3 (11:04→11:52)
[2019-06-13 11:05] LABS: ABSOLUTE EOSINOPHILS # (AUTO) 0.1 10^3/uL (0.0-0.6); ABSOLUTE LYMPHOCYTES (AUTO) 0.8 10^3/uL (0.5-4.7); ABSOLUTE MONOCYTES (AUTO) 0.7 10^3/uL (0.1-1.4); ABSOLUTE NEUT (AUTO) 5.4 10^3/uL (1.7-8.2); BASOPHILS % (AUTO) 0.6 % (0-2); EOSINOPHILS % (AUTO) 0.8 % (0-6); HEMATOCRIT 46.9 % (37.9-51.0); HEMOGLOBIN 15.5 g/dL (13.5-17.0); LYMPHOCYTES % (AUTO) 11.4 % (13-45); MEAN CORPUSCULAR VOLUME 97 fl (80-97); PLATELET COUNT 288 10^3/uL (150-450); RED BLOOD COUNT 4.84 10^6/uL (4.35-5.55); SEGMENTED NEUTROPHILS % (AUTO) 77.2 % (42-78); TOTAL CELLS COUNTED % (AUTO) 100 %
[2019-06-13 11:34] LABS: ALBUMIN 3.6 g/dL (3.5-5.0); ALKALINE PHOSPHATASE 81 U/L (38-126); ANION GAP 6 (5-19); ASPARTATE AMINO TRANSFERASE 28 U/L (17-59); BILIRUBIN,DIRECT 0.3 mg/dL (0.0-0.4); BILIRUBIN,TOTAL 0.5 mg/dL (0.2-1.3); BLOOD UREA NITROGEN 7 mg/dL (7-20); CARBON DIOXIDE 39 mmol/L (22-30); CHLORIDE 89 mmol/L (98-107); GLUCOSE 148 mg/dL (75-110); POTASSIUM 4.8 mmol/L (3.6-5.0); TOTAL PROTEIN 8.1 g/dL (6.3-8.2)
--- NOTE | 2019-06-13 11:43 | RADIOLOGY REPORT (SQ) ---
EXAM DESCRIPTION: CHEST SINGLE VIEW COMPLETED DATE/TIME: 06/13/2019 11:18 am REASON FOR STUDY: sob COMPARISON: 01/2505/02/2019 EXAM PARAMETERS: NUMBER OF VIEWS: One view. TECHNIQUE: Single frontal radiographic view of the chest acquired. RADIATION DOSE: NA LIMITATIONS: None. FINDINGS: LUNGS AND PLEURA: Unchanged elevation of the right hemidiaphragm. Grossly stable right ap ical consolidation. Mild interstitial prominence bilaterally. No significant effusion. No pneumoth orax. Unchanged blunting of the costophrenic angles, likely scarring. MEDIASTINUM AND HILAR STRUCTURES: Stable widening of the right paratracheal stripe. HEART AND VASCULAR STRUCTURES: Enlarged, stable. BONES: No acute findings. HARDWARE: None in the chest. OTHER: No other significant finding. IMPRESSION: Stable right apical consolidation compared to prior CT. Enlarged cardiac silhouette with possible mild interstitial edema. No significant effusion. TECHNICAL DOCUMENTATION: JOB ID: [id number] [employer]- All Rights Reserved Reading location - IP/workstation name: [email or web address]
[2019-06-13 11:47] LABS: TROPONIN I 0.067 ng/mL
[2019-06-13] MEDS: MAGNESIUM SULFATE/D5W 1 GM/100 ML RTUPB IV SCH ×2 (11:52→12:59)
[2019-06-13] MEDS ORDERED: LEVALBUTEROL HCL NEB 1.25 MG/3 ML AMPUL NEB PRN (12:43)
[2019-06-13] MEDS ORDERED: GLUCAGON,HUMAN RECOMB 1 MG INJ IM PRN (12:55)
[2019-06-13] MEDS ORDERED: DEXTROSE 50%-WATER 25 GM/50 ML DISP.SYRIN IV PRN ×2 (12:55)
[2019-06-13] MEDS ORDERED: DEXTROSE 40% GEL 15 GM TUBE PO PRN ×2 (12:55)
[2019-06-13] MEDS ORDERED: TRAMADOL HCL 50 MG TABLET PO PRN (12:56)
[2019-06-13 13:13] LABS: ARTERIAL BLOOD BASE EXCESS 6.7 mmol/L; ARTERIAL BLOOD H2CO3 2.27 mmol/L (1.05-1.35); ARTERIAL BLOOD HCO3 36.5 mmol/L (20-24); ARTERIAL BLOOD O2 SATURATION 95.2 % (94-98); ARTERIAL BLOOD PO2 86.2 mmHg (80-100); ARTERIAL BLOOD TOTAL CO2 38.8 mmol/L (23-27)
[2019-06-13 13:17] LABS: ARTERIAL BLOOD FIO2 38%
[2019-06-13 13:19] LABS: ARTERIAL BLOOD PCO2 75.4 mmHg (35-45)
--- NOTE | 2019-06-13 13:19 | PDOC H&P ---
History of Present Illness Admission Date/PCP: 06/13/19 12:29 BRADLEY LOCKWOOD PA-C Patient complains of: Progressive dyspnea History of Present Illness: FRANCESCO MARIANO is a 68 year old male with history of right upper lobe lung cancer status post chemoradiation in remission, type 2 diabetes mellitus, COPD, who presents to the hospital with complaints of progressive shortness of breath over the past 4 to 5 days. Patient has also been endorsed some chest tightness on occasion but none currently. Associated with cough which is nonproductive but worsened from patient's baseline. Patient denies history of CHF. Patient noted to be hypoxic with work of breathing by ER physician on presentation and was placed on BiPAP therapy. Patient also admits to lower extremity swelling which is new for the past 6 days. Patient endorses recent episode of rhinorrhea and coryza. Admits to PND. Denies orthopnea, chest pain, fever or chills. During encounter, I placed patient on room air to which he dropped to 82% SPO2, but went up to 90-92% on 2L NC. Subsequently became mildly tachypneic so placed back on BiPAP. Past Medical History Cardiac Medical History: Denies: Myocardial Infarction - [id number] MESSED UP, Hypertension Pulmonary Medical History: Reports: Chronic Obstructive Pulmonary Disease (COPD) Neurological Medical History: Denies: Seizures Endocrine Medical History: Reports: Diabetes Mellitus Type 2 Malignancy Medical History: Reports: Lung Cancer - Status post chemoradiation GI Medical History: Denies: Hepatitis, Hiatal Hernia Hematology: Denies: Anemia, Sickle Cell Disease Past Surgical History Past Surgical History: Denies: Pacemaker Social History Information Source: Patient Lives with: Alone Smoking Status: Former Smoker Frequency of Alcohol Use: Social Hx Recreational Drug Use: No Hx Prescription Drug Abuse: No - Advance Directive Resuscitation Status: Full Code Family History Family History: DM Parental Family History Reviewed: Yes Children Family History Reviewed: NA Sibling(s) Family History Reviewed.: Yes Medication/Allergy Home Medications: Fluticasone Propionate [Flonase Nasal [place] 50 Mcg/[place] 16 gm] 2 spray NASL Q12A #1 spray.pump 09/16/14 Abc Complete Multivitamin 1 tab PO DAILY 11/17/17 Albuterol Sulfate [Ventolin Hfa] 1 - 2 puff IH Q4 PRN 11/17/17 Besifloxacin HCl [Besivance 0.6% Oph Susp 5 ml] 1 drop OP ASDIR 11/17/17 Cyanocobalamin (Vitamin B-12) [Vitamin B-12] 1,000 mcg PO DAILY 11/17/17 Difluprednate [Durezol] 1 drop OP ASDIR 11/17/17 Gabapentin 300 mg PO TID 11/17/17 Linagliptin [Tradjenta] 5 mg PO DAILY 11/17/17 Metformin HCl [Glucophage 500 mg Tablet] 1,000 mg PO BID 11/17/17 Nepafenac [Ilevro] 1 drop OP ASDIR 11/17/17 Rosuvastatin Calcium 10 mg PO QHS 11/17/17 Tiotropium Br/Olodaterol HCl [Stiolto Respimat Inhal [place]] 4 mg IH QAM 11/17/17 Tramadol HCl 50 mg PO ASDIR PRN 11/17/17 Allergies/Adverse Reactions: vancomycin Allergy (Verified 11/17/17 15:09) Generalized rash Review of Systems Constitutional: PRESENT: fatigue. ABSENT: chills, fever(s) Eyes: ABSENT: visual disturbances Nose, Mouth, and Throat: ABSENT: headache(s) Cardiovascular: PRESENT: chest pain - Very few days ago but not currently, dyspnea on exertion, edema. ABSENT: orthropnea Respiratory: PRESENT: cough. ABSENT: sputum Gastrointestinal: ABSENT: nausea, vomiting Integumentary: ABSENT: diaphoresis Neurological: ABSENT: confusion Psychiatric: ABSENT: anxiety Allergic/Immunologic: PRESENT: other - Rhinorrhea Physical Exam General appearance: PRESENT: no acute distress, cooperative Neck exam: PRESENT: JVD - Mild Respiratory exam: PRESENT: prolonged expiratory phas, rales - Basilar rales benjy aterally, symmetrical, tachypnea, unlabored, wheezes Cardiovascular exam: PRESENT: RRR, +S1, +S2. ABSENT: tachycardia GI/Abdominal exam: PRESENT: normal bowel sounds, soft, tenderness - Mildly tender over right upper quadrant. ABSENT: firm, rebound, rigid Extremities exam: PRESENT: pedal edema, +1 edema - Bilateral lower extremities Neurological exam: PRESENT: alert, awake, oriented to person, oriented to place, oriented to time Results Laboratory Results: 06/13/19 10:51 06/13/19 10:51 06/13/19 06/13/19 06/13/19 10:51 10:51 11:11 WBC 7.0 RBC 4.84 Hgb 15.5 Hct 46.9 MCV 97 MCH 32.0 MCHC 33.0 RDW 16.0 H Plt Count 288 Seg Neutrophils % 77.2 Sodium 133.5 L Potassium 4.8 Chloride 89 L Carbon Dioxide 39 H Anion Gap 6 BUN 7 Creatinine 0.74 Est GFR ( Amer) > 60 Glucose 148 H Lactic Acid 1.6 Calcium 9.0 Total Bilirubin 0.5 AST 28 Alkaline Phosphatase 81 Total Protein 8.1 Albumin 3.6 06/13/19 10:51 Troponin I 0.067 NT-Pro-B Natriuret Pep 2960 H Impressions: Chest X-Ray 06/13/19 10:48 IMPRESSION: Stable right apical consolidation compared to prior CT. Enlarged cardiac silhouette with possible mild interstitial edema. No significant effusion. Assessment and Plan - Diagnosis (1) Acute on chronic respiratory failure with hypoxia and hypercapnia Is this a current diagnosis for this admission?: Yes Plan: Currently on BiPAP. Admit to IMCU patient on room air desats to 82% Possibly secondary to COPD and pulmonary edema I will follow-up CT results (2) COPD exacerbation Is this a current diagnosis for this admission?: Yes Plan: Patient does have wheezing with prolonged expiratory phase Likely triggered by recent URI Will maintain on BiPAP for a few hours and then de-escalate to 2 L nasal cannula if tolerated. Frequent nebs, Solu-Medrol, LABA/ICS (3) Acute pulmonary edema Is this a current diagnosis for this admission?: Yes Plan: Concern for new onset heart failure given lower extremity swelling and PND with elevated BNP EF unknown at this time but will check echocardiogram as last echo was in 2014 Lasix IV 40 mg twice daily. Strict I's and O's with fluid restriction. (4) Diabetes mellitus type 2 in obese Is this a current diagnosis for this admission?: Yes Plan: Sliding scale insulin, hold metformin for 48h given contrast with CT ISS, carb restricted diet, Accu-Cheks (5) Lung cancer Qualifiers: Laterality: right Lung location: upper lobe of lung Qualified Code(s): C34.11 - Malignant neoplasm of upper lobe, right bronchus or lung Is this a current diagnosis for this admission?: Yes Plan: History of lung cancer diagnosed in 2014 with chemoradiation done in 2016. Follows with Dr[address] Key Patient and reports that currently on admission - Time Time Spent with patient: 35 or more minutes
[2019-06-13] MEDS ORDERED: HEPARIN SOD (PORCINE) 5,000 UNIT/ML 1 ML VIAL SUBCUT SCH (14:00)
[2019-06-13] MEDS: IPRATROPIUM/ALBUTEROL 0.5-2.5 MG/3 ML AMPUL NEB SCH ×2 (14:53→20:26)
--- NOTE | 2019-06-13 15:12 | RADIOLOGY REPORT (SQ) ---
EXAM DESCRIPTION: CTA CHEST COMPLETED DATE/TIME: 06/13/2019 2:07 pm REASON FOR STUDY: short of breath COMPARISON: CT chest 05/02/2019 TECHNIQUE: CT scan of the chest performed using helical scanning technique with dynamic intravenous contrast injection. Images reviewed with lung, soft tissue and bone windows. Reconstructed coronal and sagittal MPR images reviewed. Additional 3 dimensional post-processing performed to develop Maximal Intensity Projection images (GA P). All images stored on PACS. All CT scanners at this facility use dose modulation, iterative reconstruction, and/or weight based d osing when appropriate to reduce radiation dose to as low as reasonably achievable (ALARA). [facility]: Dose Right [facility]: CareDose [facility]: Dose Right [facility]: Teradose 4D [facility]: [employer] CONTRAST TYPE AND DOSE: contrast/concentration: Isovue 350.00 mg/ml; Total Contrast Delivered: 62.0 ml; Total Saline Delivered: 80.0 ml Contrast bolus adequate for pulmonary arteries and aorta. RENAL FUNCTION: BUN 7 creatinine 0.74 RADIATION DOSE: CT Rad equipment meets quality standard of care and radiation dose reduction techniq ues were employed. CTDIvol: 19.3 - 41.9 mGy. DLP: 790 mGy-cm. . LIMITATIONS: None. FINDINGS: LUNGS AND PLEURA: Stable right upper lobe lung mass and right pleural effusion. No new pu lmonary findings. AORTA AND GREAT VESSELS: No aneurysm. No dissection. HEART: No pericardial effusion. Moderate to marked coronary artery calcifications. PULMONARY ARTERIES: No emboli visualized in the main pulmonary arteries or the segmental branches. HILAR AND MEDIASTINAL STRUCTURES: Mediastinal adenopathy most prominent in the subcarinal region. HARDWARE: None in the chest. UPPER ABDOMEN: No significant findings. Limited exam. THYROID AND OTHER SOFT TISSUES: No masses. No adenopathy. BONES: No acute or significant finding. 3D MIPS: Confirm above findings. OTHER: No other significant finding. IMPRESSION: 1. There is no pulmonary embolus. There is no aortic aneurysm or dissection. 2. Stable right upper lobe mass and right pleural effusion. 3. Mediastinal adenopathy, stable COMMENT: Quality ID # [id number]: Final reports with documentation of one or more dose reduction techniques (e.g., Automated exposure control, adjustment of the mA and/or kV according to patient size, use of iterative reconstruction technique) TECHNICAL DOCUMENTATION: JOB ID: [id number] [employer]- All Rights Reserved Reading location - IP/workstation name: [email or web address]
[2019-06-13] MEDS: FUROSEMIDE INJ/PF 40 MG/4 ML SDV IV SCH ×2 (15:35→18:51)
[2019-06-13 16:05] LABS: A TYPE INFLUENZA AG NEGATIVE (NEGATIVE); B INFLUENZA AG NEGATIVE (NEGATIVE)
[2019-06-13] MEDS: INSULIN LISPRO 100 UNIT/ML 3 ML VIAL SUBCUT SCH ×2 (16:12→22:11)
[2019-06-13] MEDS: GABAPENTIN 100 MG CAPSULE PO SCH (17:13)
[2019-06-13] MEDS ORDERED: CALCIUM CARBONATE 500 MG TAB.CHEW PO PRN (20:21)
[2019-06-13 20:43] LABS: ARTERIAL BLOOD BASE EXCESS 10.7 mmol/L; ARTERIAL BLOOD H2CO3 2.94 mmol/L (1.05-1.35); ARTERIAL BLOOD O2 SATURATION 93.2 % (94-98); ARTERIAL BLOOD PH 7.26 (7.35-7.45); ARTERIAL BLOOD PO2 79.9 mmHg (80-100)
[2019-06-13 20:48] LABS: ARTERIAL BLOOD FIO2 4
[2019-06-13 20:51] LABS: ARTERIAL BLOOD PCO2 97.7 mmHg (35-45)
[2019-06-13] MEDS: ATORVASTATIN CALCIUM 20 MG TABLET PO SCH (21:38)
[2019-06-13] MEDS: GABAPENTIN 300 MG CAPSULE PO SCH (21:39)
--- NOTE | 2019-06-13 22:16 | EKG REPORT ---
SEVERITY:- ABNORMAL ECG - SINUS RHYTHM INCOMPLETE RBBB AND LAFB : Confirmed by: Moody Combs 13-Jun-2019 22:15:27
--- NOTE | 2019-06-13 22:45 | XCELERA REPORT ---
[address] [address] Transthoracic Echocardiogram Report Name: FRANCESCO MARIANO Age: 68 yrs Gender: Male : 1950 Patient Status: Inpatient Patient Location: [address] [place] [address] Study Date: 06/13/2019 07:27 PM Height: 66 in Weight: 225 lb BSA: 2.1 m2 Procedure: A complete two-dimensional transthoracic echocardiogram was performed (2D, M-mode, spectral and color flow Doppler). The study was technically difficult with many images being suboptimal in quality. Reason For Study: possible new chf Ordering Physician: KARISSA JUAN Performed By: Caty Burns Interpretation Summary LV EF is 55% Doppler measurements suggest pseudonormalized left ventricular relaxation, which is associated with grade II/IV or mild to moderate diastolic dysfunction Left ventricular systolic function is low normal. Regional wall motion abnormalities cannot be excluded due to limited visualization. Not all wall segments were well visualized. There is mild concentric left ventricular hypertrophy. The left ventricle is grossly normal size. The right ventricle is moderately dilated. The right ventricular systolic function is normal. The right ventricle appears to be hypertrophied The right atrium is moderately dilated. The left atrium is mildly dilated. There is a mild amount of mitral regurgitation There is no mitral valve stenosis. There is a trace amount of aortic regurgitation There is no aortic valve stenosis There is a trace to mild amount of tricuspid regurgitation There is mild pulmonary hypertension by echo Best estimated RVSP is approximately 35-40 mm/Hg. The pulmonic valve is not well visualized. The aortic root is not well visualized but is probably normal size. The inferior vena cava appeared normal and decreased > 50% with respiration (RAP 5-10 mmHg) Minimal pericardial effusion. MMode/2D Measurements & Calculations RVDd: 2.4 cm LVIDd: 5.8 cm FS: 36.3 % Ao root diam: 2.9 cm IVSd: 1.0 cm LVIDs: 3.7 cm EDV(Teich): 168.4 ml Ao root area: 6.6 cm2 LVPWd: 1.0 cm ESV(Teich): 58.7 ml LA dimension: 3.0 cm EF(Teich): 65.1 % Doppler Measurements & Calculations MV E max shawn: MV P1/2t max shawn: Ao V2 max: LV V1 max P.4 cm/sec 101.8 cm/sec 139.8 cm/sec 3.6 mmHg MV A max shawn: MV P1/2t: 38.7 msec Ao max P.8 mmHg LV V1 max: 56.8 cm/sec MVA(P1/2t): 5.7 cm2 94.3 cm/sec MV E/A: 1.5 MV dec slope: 771.0 cm/sec2 MV dec time: 0.15 sec PA V2 max: TR max shawn: MV P1/2t-pr_phl: 103.2 cm/sec 285.0 cm/sec 38.7 msec PA max P.3 mmHgTR max P.5 mmHg Left Ventricle The left ventricle is grossly normal size. There is mild concentric left ventricular hypertrophy. Left ventricular systolic function is low normal. LV EF is 55%. Doppler measurements suggest pseudonormalized left ventricular relaxation, which is associated with grade II/IV or mild to moderate diastolic dysfunction. Not all wall segments were well visualized. Regional wall motion abnormalities cannot be excluded due to limited visualization. Right Ventricle The right ventricle is moderately dilated. The right ventricle appears to be hypertrophied. The right ventricular systolic function is normal. Atria The right atrium is moderately dilated. The left atrium is mildly dilated. The interatrial septum is intact with no evidence for an atrial septal defect. Mitral Valve The mitral valve leaflets are sclerotic, but show no functional abnormalities. There is no mitral valve stenosis. There is a mild amount of mitral regurgitation. Aortic Valve The aortic valve is not well visualized secondary to technical limitations. There is no aortic valve stenosis. There is a trace amount of aortic regurgitation. Tricuspid Valve The tricuspid valve is not well visualized secondary to technical limitations. There is no tricuspid stenosis. There is a trace to mild amount of tricuspid regurgitation. There is mild pulmonary hypertension by echo. Best estimated RVSP is approximately 35-40 mm/Hg. Pulmonic Valve The pulmonic valve is not well visualized. Great Vessels The aortic root is not well visualized but is probably normal size. The inferior vena cava appeared normal and decreased > 50% with respiration (RAP 5-10 mmHg). Effusions Minimal pericardial effusion. : KARISSA JUAN Shyamal
[2019-06-14 00:56] LABS: ARTERIAL BLOOD BASE EXCESS 13.2 mmol/L; ARTERIAL BLOOD HCO3 45.2 mmol/L (20-24); ARTERIAL BLOOD O2 SATURATION 86.9 % (94-98); ARTERIAL BLOOD PH 7.29 (7.35-7.45); ARTERIAL BLOOD PO2 61.3 mmHg (80-100); ARTERIAL BLOOD TOTAL CO2 48.2 mmol/L (23-27)
[2019-06-14 00:58] LABS: ARTERIAL BLOOD FIO2 40%
[2019-06-14 00:59] LABS: ARTERIAL BLOOD PCO2 96.4 mmHg (35-45)
[2019-06-14] MEDS: IPRATROPIUM/ALBUTEROL 0.5-2.5 MG/3 ML AMPUL NEB SCH ×6 (02:38→20:54)
[2019-06-14 06:31] LABS: ABSOLUTE LYMPHOCYTES (AUTO) 0.4 10^3/uL (0.5-4.7); ABSOLUTE MONOCYTES (AUTO) 0.5 10^3/uL (0.1-1.4); ABSOLUTE NEUT (AUTO) 4.1 10^3/uL (1.7-8.2); BASOPHILS % (AUTO) 0.3 % (0-2); HEMATOCRIT 45.5 % (37.9-51.0); LYMPHOCYTES % (AUTO) 8.5 % (13-45); MEAN CORPUSCULAR HGB CONC 32.9 g/dL (32.0-36.0); MEAN CORPUSCULAR VOLUME 98 fl (80-97); MONOCYTES % (AUTO) 10.6 % (3-13); PLATELET COUNT 272 10^3/uL (150-450); RED BLOOD COUNT 4.67 10^6/uL (4.35-5.55); RED CELL DISTRIBUTION WIDTH 15.6 % (11.5-14.0); SEGMENTED NEUTROPHILS % (AUTO) 80.6 % (42-78); TOTAL CELLS COUNTED % (AUTO) 100 %
[2019-06-14 06:55] LABS: ALBUMIN 3.2 g/dL (3.5-5.0); ALKALINE PHOSPHATASE 74 U/L (38-126); ASPARTATE AMINO TRANSFERASE 18 U/L (17-59); BILIRUBIN,DIRECT 0.3 mg/dL (0.0-0.4); BILIRUBIN,TOTAL 0.4 mg/dL (0.2-1.3); BLOOD UREA NITROGEN 19 mg/dL (7-20); CALCIUM 9.6 mg/dL (8.4-10.2); CHLORIDE 87 mmol/L (98-107); GLUCOSE 156 mg/dL (75-110); TOTAL PROTEIN 7.4 g/dL (6.3-8.2)
[2019-06-14 07:03] LABS: ANION GAP 10 (5-19); CARBON DIOXIDE 39 mmol/L (22-30)
[2019-06-14] MEDS: INSULIN LISPRO 100 UNIT/ML 3 ML VIAL SUBCUT SCH ×4 (08:08→22:48)
[2019-06-14 09:02] LABS: ARTERIAL BLOOD BASE EXCESS 21.9 mmol/L; ARTERIAL BLOOD H2CO3 3.27 mmol/L (1.05-1.35); ARTERIAL BLOOD HCO3 55.2 mmol/L (20-24); ARTERIAL BLOOD O2 SATURATION 86.7 % (94-98); ARTERIAL BLOOD PH 7.32 (7.35-7.45); ARTERIAL BLOOD PO2 60.1 mmHg (80-100); ARTERIAL BLOOD TOTAL CO2 58.5 mmol/L (23-27)
[2019-06-14 09:06] LABS: ARTERIAL BLOOD FIO2 5L; ARTERIAL BLOOD PCO2 108.6 mmHg (35-45)
[2019-06-14] MEDS: GABAPENTIN 100 MG CAPSULE PO SCH ×2 (09:14→17:05)
[2019-06-14] MEDS: METHYLPREDNISOLONE INJ 40 MG/1 ML SDV IV SCH ×2 (09:14→22:48)
[2019-06-14] MEDS: FUROSEMIDE INJ/PF 40 MG/4 ML SDV IV SCH ×2 (09:15→17:05)
[2019-06-14] MEDS: ENOXAPARIN SODIUM INJ 40 MG/0.4 ML DISP.SYRIN SUBCUT SCH (09:15)
[2019-06-14] MEDS: FLUTICASONE/VILANTEROL 200-25 MCG/DOSE IH SCH (09:18)
[2019-06-14 10:41] LABS: ARTERIAL BLOOD BASE EXCESS 11.5 mmol/L; ARTERIAL BLOOD FIO2 40%; ARTERIAL BLOOD O2 SATURATION 96.4 % (94-98); ARTERIAL BLOOD PH 7.32 (7.35-7.45); ARTERIAL BLOOD PO2 95.2 mmHg (80-100); ARTERIAL BLOOD TOTAL CO2 44.6 mmol/L (23-27)
[2019-06-14 10:43] LABS: ARTERIAL BLOOD PCO2 83.1 mmHg (35-45)
--- NOTE | 2019-06-14 10:59 | PDOC PROGRESS REPORT ---
Subjective Progress Note for:: 06/14/19 Subjective:: Patient was seen this morning. At the time ABG had just been done and was showing a PCO2 of 108. Patient denied any worsening of his shortness of breath and actually felt somewhat comfortable at that time. He denied any work of breathing at the time. Denied chest pain or confusion. Reason For Visit: COPD EXACERBATION, CHF Physical Exam Vital Signs: Temp Pulse Resp BP Pulse Ox 97.5 F 76 18 118/70 95 06/14/19 08:00 06/14/19 08:00 06/14/19 08:00 06/14/19 08:00 06/14/19 08:00 Intake & Output 06/13/19 06/14/19 06/15/19 06:59 06:59 06:59 Intake Total 400 Output Total 3350 Balance -2950 Weight 101.6 kg General appearance: PRESENT: no acute distress, cooperative Neck exam: ABSENT: JVD Respiratory exam: PRESENT: crackles - Basilar crackles bilaterally, decreased breath sounds, prolonged expiratory phas, symmetrical, unlabored, wheezes. ABS ENT: tachypnea Cardiovascular exam: PRESENT: RRR, +S1, +S2. ABSENT: tachycardia GI/Abdominal exam: PRESENT: normal bowel sounds, soft. ABSENT: rebound, rigid, tenderness Extremities exam: PRESENT: +2 edema Neurological exam: PRESENT: alert, awake, oriented to person, oriented to place, oriented to time, oriented to situation Results Laboratory Results: 06/14/19 06:02 06/14/19 06:02 06/13/19 06/13/19 06/13/19 10:51 10:51 11:11 WBC 7.0 RBC 4.84 Hgb 15.5 Hct 46.9 MCV 97 MCH 32.0 MCHC 33.0 RDW 16.0 H Plt Count 288 Seg Neutrophils % 77.2 Carbonic Acid HCO3/H2CO3 Ratio ABG pH ABG pCO2 ABG pO2 ABG HCO3 ABG O2 Saturation ABG Base Excess FiO2 Sodium 133.5 L Potassium 4.8 Chloride 89 L Carbon Dioxide 39 H Anion Gap 6 BUN 7 Creatinine 0.74 Est GFR ( Amer) > 60 Glucose 148 H Lactic Acid 1.6 Calcium 9.0 Magnesium Total Bilirubin 0.5 AST 28 Alkaline Phosphatase 81 Total Protein 8.1 Albumin 3.6 TSH 06/13/19 06/13/19 06/14/19 13:00 20:28 00:38 WBC RBC Hgb Hct MCV MCH MCHC RDW Plt Count Seg Neutrophils % Carbonic Acid 2.27 H 2.94 H 2.90 H HCO3/H2CO3 Ratio 16:1 14:1 15:1 ABG pH 7.30 L 7.26 L 7.29 L ABG pCO2 75.4 H* 97.7 H* 96.4 H* ABG pO2 86.2 79.9 L 61.3 L ABG HCO3 36.5 H 43.0 H 45.2 H ABG O2 Saturation 95.2 93.2 L 86.9 L ABG Base Excess 6.7 10.7 13.2 FiO2 38% 4 40% Sodium Potassium Chloride Carbon Dioxide Anion Gap BUN Creatinine Est GFR ( Amer) Glucose Lactic Acid Calcium Magnesium Total Bilirubin AST Alkaline Phosphatase Total Protein Albumin TSH 06/14/19 06/14/19 06/14/19 06:02 06:02 06:02 WBC 5.0 RBC 4.67 Hgb 15.0 Hct 45.5 MCV 98 H MCH 32.0 MCHC 32.9 RDW 15.6 H Plt Count 272 Seg Neutrophils % 80.6 H Carbonic Acid HCO3/H2CO3 Ratio ABG pH ABG pCO2 ABG pO2 ABG HCO3 ABG O2 Saturation ABG Base Excess FiO2 Sodium 136.4 L Potassium 5.0 Chloride 87 L Carbon Dioxide 39 H Anion Gap 10 BUN 19 Creatinine 0.97 Est GFR ( Amer) > 60 Glucose 156 H Lactic Acid Calcium 9.6 Magnesium 2.1 Total Bilirubin 0.4 AST 18 Alkaline Phosphatase 74 Total Protein 7.4 Albumin 3.2 L TSH 0.56 06/14/19 06/14/19 08:33 10:20 WBC RBC Hgb Hct MCV MCH MCHC RDW Plt Count Seg Neutrophils % Carbonic Acid 3.27 H 2.50 H HCO3/H2CO3 Ratio 16:1 16:1 ABG pH 7.32 L 7.32 L ABG pCO2 108.6 H* 83.1 H* ABG pO2 60.1 L 95.2 ABG HCO3 55.2 H 42.0 H ABG O2 Saturation 86.7 L 96.4 ABG Base Excess 21.9 11.5 FiO2 5L 40% Sodium Potassium Chloride Carbon Dioxide Anion Gap BUN Creatinine Est GFR ( Amer) Glucose Lactic Acid Calcium Magnesium Total Bilirubin AST Alkaline Phosphatase Total Protein Albumin TSH 01/06/20 01/06/20 01/07/20 10:51 14:28 06:02 Troponin I 0.067 0.060 NT-Pro-B Natriuret Pep 2960 H 2470 H Impressions: Chest X-Ray 06/13/19 10:48 IMPRESSION: Stable right apical consolidation compared to prior CT. Enlarged cardiac silhouette with possible mild interstitial edema. No significant effusion. Chest/Abdomen CTA 06/13/19 12:19 IMPRESSION: 1. There is no pulmonary embolus. There is no aortic aneurysm or dissection. 2. Stable right upper lobe mass and right pleural effusion. 3. Mediastinal adenopathy, stable Assessment and Plan - Diagnosis (1) Acute on chronic respiratory failure with hypoxia and hypercapnia Is this a current diagnosis for this admission?: Yes Plan: Patient had significant worsening of hypercapnia this morning with PCO2 of 108 despite being on BiPAP therapy. However he was mentating well without any evidence of confusion and was not working to breathe. Patient was laying down in bed at that time. Patient assessed with respiratory therapist and primary nurse at bedside. Increased IPAP to 22 while maintaining EPAP at 10. However patient kept on pulling low tidal volumes in the 200s to 300s even after placing patient on AVAPS mode with targeted VT of 500. After having patient sit upright in bed placing patient back on 22/10, patient started to maintain sufficient tidal volumes of 500. ABG was repeated 1 hour after which show significant improvement in PCO2 levels now down to 80% and bicarb trending back down with pH of 7.32. We will maintain on current BiPAP settings 22/10 and decrease FiO2 to 30% and repeat an ABG at 3 PM. We will continue to treat for COPD exacerbation continue diuresis for pulmonary edema. (2) COPD exacerbation Is this a current diagnosis for this admission?: Yes Plan: Patient does have wheezing with prolonged expiratory phase Likely triggered by recent URI Frequent nebs, Solu-Medrol, LABA/ICS (3) Acute pulmonary edema Is this a current diagnosis for this admission?: Yes Plan: Concern for new onset heart failure given lower extremity swelling and PND with elevated BNP EF unknown at this time but will check echocardiogram as last echo was in 2014 Lasix IV 40 mg twice daily and diuresing adequately. Strict I's and O's with fluid restriction. (4) Diabetes mellitus type 2 in obese Is this a current diagnosis for this admission?: Yes Plan: Sliding scale insulin, hold metformin for 48h given contrast with CT ISS, carb restricted diet, Accu-Cheks (5) Lung cancer Qualifiers: Laterality: right Lung location: upper lobe of lung Qualified Code(s): C34.11 - Malignant neoplasm of upper lobe, right bronchus or lung Is this a current diagnosis for this admission?: Yes Plan: History of lung cancer diagnosed in 2015 with chemoradiation done in 2016. Follows with Dr. Key Patient and reports that currently stable and has not needed chemo in over a year. - Time Time Spent with patient: 25-34 minutes
[2019-06-14 15:43] LABS: ARTERIAL BLOOD BASE EXCESS 17.8 mmol/L; ARTERIAL BLOOD H2CO3 2.35 mmol/L (1.05-1.35); ARTERIAL BLOOD HCO3 47.4 mmol/L (20-24); ARTERIAL BLOOD O2 SATURATION 88.7 % (94-98); ARTERIAL BLOOD TOTAL CO2 49.8 mmol/L (23-27)
[2019-06-14 15:47] LABS: ARTERIAL BLOOD FIO2 30%
[2019-06-14] MEDS ORDERED: METOPROLOL SUCCINATE 50 MG TAB.SR.24H PO SCH (21:30)
[2019-06-14] MEDS: METOPROLOL SUCCINATE 50 MG TAB.SR.24H PO SCH (22:48)
[2019-06-14] MEDS: GABAPENTIN 300 MG CAPSULE PO SCH (22:48)
[2019-06-15] MEDS: IPRATROPIUM/ALBUTEROL 0.5-2.5 MG/3 ML AMPUL NEB SCH ×6 (00:35→20:50)
[2019-06-15] MEDS: ATORVASTATIN CALCIUM 20 MG TABLET PO SCH ×2 (03:02→21:29)
[2019-06-15 06:14] LABS: ABSOLUTE LYMPHOCYTES (AUTO) 0.4 10^3/uL (0.5-4.7); ABSOLUTE MONOCYTES (AUTO) 0.2 10^3/uL (0.1-1.4); BASOPHILS % (AUTO) 0.1 % (0-2); HEMATOCRIT 45.7 % (37.9-51.0); HEMOGLOBIN 14.9 g/dL (13.5-17.0); LYMPHOCYTES % (AUTO) 5.7 % (13-45); MEAN CORPUSCULAR HEMOGLOBIN 31.7 pg (27.0-33.4); MEAN CORPUSCULAR HGB CONC 32.7 g/dL (32.0-36.0); MEAN CORPUSCULAR VOLUME 97 fl (80-97); MONOCYTES % (AUTO) 3.5 % (3-13); PLATELET COUNT 302 10^3/uL (150-450); RED BLOOD COUNT 4.72 10^6/uL (4.35-5.55); RED CELL DISTRIBUTION WIDTH 15.6 % (11.5-14.0); SEGMENTED NEUTROPHILS % (AUTO) 90.7 % (42-78); TOTAL CELLS COUNTED % (AUTO) 100 %; WHITE BLOOD COUNT 6.6 10^3/uL (4.0-10.5)
[2019-06-15 06:34] LABS: ALBUMIN 3.2 g/dL (3.5-5.0); ALKALINE PHOSPHATASE 71 U/L (38-126); ASPARTATE AMINO TRANSFERASE 18 U/L (17-59); BILIRUBIN,DIRECT 0.3 mg/dL (0.0-0.4); BILIRUBIN,TOTAL 0.4 mg/dL (0.2-1.3); BLOOD UREA NITROGEN 27 mg/dL (7-20); CALCIUM 9.1 mg/dL (8.4-10.2); CHLORIDE 82 mmol/L (98-107); GLUCOSE 183 mg/dL (75-110); POTASSIUM 4.5 mmol/L (3.6-5.0); TOTAL PROTEIN 7.4 g/dL (6.3-8.2)
[2019-06-15 06:45] LABS: ANION GAP 8 (5-19)
[2019-06-15 06:46] LABS: CARBON DIOXIDE 46 mmol/L (22-30)
[2019-06-15 06:52] LABS: ARTERIAL BLOOD BASE EXCESS 19.5 mmol/L; ARTERIAL BLOOD H2CO3 2.37 mmol/L (1.05-1.35); ARTERIAL BLOOD HCO3 49.3 mmol/L (20-24); ARTERIAL BLOOD O2 SATURATION 89.6 % (94-98); ARTERIAL BLOOD PH 7.42 (7.35-7.45); ARTERIAL BLOOD PO2 59.2 mmHg (80-100); ARTERIAL BLOOD TOTAL CO2 51.7 mmol/L (23-27)
[2019-06-15 06:57] LABS: ARTERIAL BLOOD FIO2 30%; ARTERIAL BLOOD PCO2 78.6 mmHg (35-45)
[2019-06-15] MEDS: INSULIN LISPRO 100 UNIT/ML 3 ML VIAL SUBCUT SCH ×4 (08:02→22:14)
[2019-06-15] MEDS: METOPROLOL SUCCINATE 50 MG TAB.SR.24H PO SCH ×2 (09:21→21:29)
[2019-06-15] MEDS: METHYLPREDNISOLONE INJ 40 MG/1 ML SDV IV SCH (09:21)
[2019-06-15] MEDS: FUROSEMIDE INJ/PF 40 MG/4 ML SDV IV SCH ×2 (09:22→17:00)
[2019-06-15] MEDS: ENOXAPARIN SODIUM INJ 40 MG/0.4 ML DISP.SYRIN SUBCUT SCH (09:22)
[2019-06-15] MEDS: FLUTICASONE/VILANTEROL 200-25 MCG/DOSE IH SCH (09:22)
[2019-06-15] MEDS: GABAPENTIN 100 MG CAPSULE PO SCH ×2 (09:22→17:00)
[2019-06-15] MEDS ORDERED: LORAZEPAM INJ 2 MG/1 ML VIAL IV PRN (16:13)
--- NOTE | 2019-06-15 16:34 | PDOC PROGRESS REPORT ---
Subjective Progress Note for:: 06/15/19 Subjective:: FRANCESCO MARIANO is a 68 year old male with history of right upper lobe lung cancer status post chemoradiation in remission, type 2 diabetes mellitus, COPD, who presents to the hospital with complaints of progressive shortness of breath over the past 4 to 5 days. Patient has also been endorsed some chest tightness on occasion but none currently. Associated with cough which is nonproductive but worsened from patient's baseline. Patient denies history of CHF. Patient noted to be hypoxic with work of breathing by ER physician on presentation and was placed on BiPAP therapy. Patient also admits to lower extremity swelling which is new for the past 6 days. Patient endorses recent episode of rhinorrhea and coryza. Admits to PND. Denies orthopnea, chest pain, fever or chills. During encounter, I placed patient on room air to which he dropped to 82% SPO2, but went up to 90-92% on 2L NC. Subsequently became mildly tachypneic so placed back on BiPAP. 06/15/2019. No acute events overnight. Patient currently resting in bed no apparent distress, denies any fever, chills, nausea, vomiting, diarrhea, constipation or urinary symptoms. Still BiPAP and supplemental oxygen dependent. Reason For Visit: COPD EXACERBATION, CHF Physical Exam Vital Signs: Temp Pulse Resp BP Pulse Ox 98.2 F 74 16 104/60 93 06/15/19 08:28 06/15/19 13:53 06/15/19 12:35 06/15/19 08:28 06/15/19 12:35 Intake & Output 06/14/19 06/15/19 06/16/19 06:59 06:59 06:59 Intake Total 400 995 480 Output Total 3350 7910 1000 Balance -2950 -6915 -520 Weight 101.6 kg 100 kg General appearance: PRESENT: no acute distress, well-developed, well-nourished Head exam: PRESENT: atraumatic, normocephalic Respiratory exam: PRESENT: prolonged expiratory phas, wheezes. ABSENT: rales, rhonchi GI/Abdominal exam: PRESENT: normal bowel sounds, soft. ABSENT: distended, guarding, mass, organolmegaly, rebound, tenderness Neurological exam: PRESENT: alert, awake, oriented to person, oriented to place, oriented to time, oriented to situation, CN II-XII grossly intact. ABSENT: motor sensory deficit Results Laboratory Results: 06/15/19 05:59 06/15/19 05:59 06/15/19 06/15/19 06/15/19 05:40 05:59 05:59 WBC 6.6 RBC 4.72 Hgb 14.9 Hct 45.7 MCV 97 MCH 31.7 MCHC 32.7 RDW 15.6 H Plt Count 302 Seg Neutrophils % 90.7 H Carbonic Acid 2.37 H HCO3/H2CO3 Ratio 20:1 ABG pH 7.42 ABG pCO2 78.6 H* ABG pO2 59.2 L ABG HCO3 49.3 H ABG O2 Saturation 89.6 L ABG Base Excess 19.5 FiO2 30% Sodium 135.5 L Potassium 4.5 Chloride 82 L Carbon Dioxide 46 H* Anion Gap 8 BUN 27 H Creatinine 0.95 Est GFR ( Amer) > 60 Glucose 183 H Calcium 9.1 Total Bilirubin 0.4 AST 18 Alkaline Phosphatase 71 Total Protein 7.4 Albumin 3.2 L 06/13/19 06/13/19 06/14/19 10:51 14:28 06:02 Troponin I 0.067 0.060 NT-Pro-B Natriuret Pep 2960 H 2470 H Impressions: Chest X-Ray 06/13/19 10:48 IMPRESSION: Stable right apical consolidation compared to prior CT. Enlarged cardiac silhouette with possible mild interstitial edema. No significant effusion. Chest/Abdomen CTA 06/13/19 12:19 IMPRESSION: 1. There is no pulmonary embolus. There is no aortic aneurysm or dissection. 2. Stable right upper lobe mass and right pleural effusion. 3. Mediastinal adenopathy, stable Assessment and Plan - Diagnosis (1) Acute on chronic respiratory failure with hypoxia and hypercapnia Is this a current diagnosis for this admission?: Yes Plan: History of O2 dependent COPD. Uses 1 L/julia as needed. Most likely due to acute COPD exacerbation complicated by history of DESTINY Blood gases are improving however patient still has significant hypercarbia and hypoxemia. Alert and oriented in no apparent distress. Continue duo nebs, IV steroids, LABA, LABA, ICS. Duo nebs, pulmonary toileting, incentive spirometry. (2) Acute pulmonary edema Is this a current diagnosis for this admission?: Yes Plan: Secondary to #1. Concern for new onset heart failure given lower extremity swelling and PND and proBNP 2960 on admission. Troponin 0.060, 0.067 06/13/2019 2D echo LVEF 55%. Grade 2/4 diastolic dysfunction. Mild concentric left ventricular hypertrophy. RSVP 35 to 40 mmHg. EKG no acute changes except for incomplete right bundle branch block and left anterior fascicular block. Unchanged from 09/12/2014. Cardiac diet, IV diuretics, strict in and out, fluid restriction. (3) COPD exacerbation Is this a current diagnosis for this admission?: Yes Plan: As per #1. (4) Diabetes mellitus type 2 in obese Is this a current diagnosis for this admission?: Yes Plan: Sliding scale insulin, hold metformin for 48h given contrast with CT ISS, carb restricted diet, Accu-Cheks (5) Lung cancer Qualifiers: Laterality: right Lung location: upper lobe of lung Qualified Code(s): C34.11 - Malignant neoplasm of upper lobe, right bronchus or lung Is this a current diagnosis for this admission?: Yes Plan: History of lung cancer diagnosed in 2014 with chemoradiation done in 2016. Follows with Dr. Key Patient and reports that currently stable and has not needed chemo in over a year. (6) Obstructive sleep apnea Is this a current diagnosis for this admission?: Yes Plan: History of obstructive sleep apnea. Does not have CPAP at home. As per patient he is scheduled to undergo nocturnal polysomnography on 06/27/2019. Continue nocturnal CPAP.
[2019-06-15] MEDS: FOLIC ACID 1 MG TABLET PO SCH (16:58)
[2019-06-15] MEDS: METHYLPREDNISOLONE INJ 125 MG/2 ML SDV IV SCH (21:29)
[2019-06-15] MEDS: GABAPENTIN 300 MG CAPSULE PO SCH (21:29)
[2019-06-15] MEDS ORDERED: METHYLPREDNISOLONE INJ 40 MG/1 ML SDV IV SCH (22:00)
[2019-06-16] MEDS: IPRATROPIUM/ALBUTEROL 0.5-2.5 MG/3 ML AMPUL NEB SCH ×5 (00:54→16:22)
[2019-06-16] MEDS: METHYLPREDNISOLONE INJ 125 MG/2 ML SDV IV SCH ×3 (06:28→21:33)
[2019-06-16] MEDS: INSULIN LISPRO 100 UNIT/ML 3 ML VIAL SUBCUT SCH ×4 (08:54→21:35)
[2019-06-16] MEDS: FOLIC ACID 1 MG TABLET PO SCH (09:26)
[2019-06-16] MEDS: GABAPENTIN 100 MG CAPSULE PO SCH ×2 (09:26→17:05)
[2019-06-16] MEDS: METOPROLOL SUCCINATE 50 MG TAB.SR.24H PO SCH ×2 (09:26→21:35)
[2019-06-16] MEDS: FUROSEMIDE INJ/PF 40 MG/4 ML SDV IV SCH ×2 (09:26→17:06)
[2019-06-16 09:28] LABS: ARTERIAL BLOOD BASE EXCESS 17.3 mmol/L; ARTERIAL BLOOD H2CO3 2.71 mmol/L (1.05-1.35); ARTERIAL BLOOD HCO3 48.8 mmol/L (20-24); ARTERIAL BLOOD O2 SATURATION 94.5 % (94-98); ARTERIAL BLOOD PH 7.35 (7.35-7.45); ARTERIAL BLOOD PO2 79.6 mmHg (80-100); ARTERIAL BLOOD TOTAL CO2 51.6 mmol/L (23-27)
[2019-06-16] MEDS: ENOXAPARIN SODIUM INJ 40 MG/0.4 ML DISP.SYRIN SUBCUT SCH (09:28)
[2019-06-16] MEDS: FLUTICASONE/VILANTEROL 200-25 MCG/DOSE IH SCH (09:33)
[2019-06-16 09:37] LABS: ARTERIAL BLOOD FIO2 3L
--- NOTE | 2019-06-16 12:40 | PDOC PROGRESS REPORT ---
Subjective Progress Note for:: 06/16/19 Subjective:: FRANCESCO MARIANO is a 68 year old male with history of right upper lobe lung cancer status post chemoradiation in remission, type 2 diabetes mellitus, COPD, who presents to the hospital with complaints of progressive shortness of breath over the past 4 to 5 days. Patient has also been endorsed some chest tightness on occasion but none currently. Associated with cough which is nonproductive but worsened from patient's baseline. Patient denies history of CHF. Patient noted to be hypoxic with work of breathing by ER physician on presentation and was placed on BiPAP therapy. Patient also admits to lower extremity swelling which is new for the past 6 days. Patient endorses recent episode of rhinorrhea and coryza. Admits to PND. Denies orthopnea, chest pain, fever or chills. During encounter, I placed patient on room air to which he dropped to 82% SPO2, but went up to 90-92% on 2L NC. Subsequently became mildly tachypneic so placed back on BiPAP. 06/15/2019. No acute events overnight. Patient currently resting in bed no apparent distress, denies any fever, chills, nausea, vomiting, diarrhea, constipation or urinary symptoms. Still BiPAP and supplemental oxygen dependent. 06/16/2018. No acute events overnight. Comfortably sitting in bed in no apparent distress. Repeat ABG shows mild improvement of hypoxia however patient still has significant hypercapnia. Reason For Visit: COPD EXACERBATION, CHF Physical Exam Vital Signs: Temp Pulse Resp BP Pulse Ox 98.1 F 68 15 104/67 92 06/16/19 08:27 06/16/19 08:27 06/16/19 08:27 06/16/19 08:27 06/16/19 08:27 Intake & Output 06/15/19 06/16/19 06/17/19 06:59 06:59 06:59 Intake Total 995 1177 Output Total 7963 0067 Balance -8031 -122 Weight 100 kg 97.2 kg General appearance: PRESENT: obese Head exam: PRESENT: atraumatic, normocephalic Respiratory exam: PRESENT: clear to auscultation benjy, prolonged expiratory phas. ABSENT: rales, rhonchi, wheezes Cardiovascular exam: PRESENT: RRR. ABSENT: diastolic murmur, rubs, systolic murmur GI/Abdominal exam: PRESENT: normal bowel sounds, soft. ABSENT: distended, guarding, mass, organolmegaly, rebound, tenderness Neurological exam: PRESENT: alert, awake, oriented to person, oriented to place, oriented to time, oriented to situation, CN II-XII grossly intact. ABSENT: motor sensory deficit Results Laboratory Results: 06/15/19 05:59 06/15/19 05:59 06/16/19 09:15 Carbonic Acid 2.71 H HCO3/H2CO3 Ratio 18:1 ABG pH 7.35 ABG pCO2 90.0 H* ABG pO2 79.6 L ABG HCO3 48.8 H ABG O2 Saturation 94.5 ABG Base Excess 17.3 FiO2 3L 06/13/19 06/13/19 06/14/19 10:51 14:28 06:02 Troponin I 0.067 0.060 NT-Pro-B Natriuret Pep 2960 H 2470 H Impressions: Chest X-Ray 06/13/19 10:48 IMPRESSION: Stable right apical consolidation compared to prior CT. Enlarged cardiac silhouette with possible mild interstitial edema. No significa nt effusion. Chest/Abdomen CTA 06/13/19 12:19 IMPRESSION: 1. There is no pulmonary embolus. There is no aortic aneurysm or dissection. 2. Stable right upper lobe mass and right pleural effusion. 3. Mediastinal adenopathy, stable Assessment and Plan - Diagnosis (1) Acute on chronic respiratory failure with hypoxia and hypercapnia Is this a current diagnosis for this admission?: Yes Plan: History of O2 dependent COPD. Uses 1 L/julia as needed. Most likely due to acute COPD exacerbation complicated by history of DESTINY Repeat blood gas improvement of hypoxia however still significant hypercarbia. Alert and oriented in no apparent distress. Continue duo nebs, IV steroids, LABA, LABA, ICS. Duo nebs, pulmonary toileting, incentive spirometry. (2) Acute pulmonary edema Is this a current diagnosis for this admission?: Yes Plan: Secondary to #1. Concern for new onset heart failure given lower extremity swelling and PND and proBNP 2960 on admission. Troponin 0.060, 0.067 06/13/2019 2D echo LVEF 55%. Grade 2/4 diastolic dysfunction. Mild concentric left ventricular hypertrophy. RSVP 35 to 40 mmHg. EKG no acute changes except for incomplete right bundle branch block and left anterior fascicular block. Unchanged from 09/12/2014. Cardiac diet, IV diuretics, strict in and out, fluid restriction. (3) COPD exacerbation Is this a current diagnosis for this admission?: Yes Plan: As per #1. (4) Diabetes mellitus type 2 in obese Is this a current diagnosis for this admission?: Yes Plan: Sliding scale insulin, hold metformin for 48h given contrast with CT ISS, carb restricted diet, Accu-Cheks (5) Lung cancer Qualifiers: Laterality: right Lung location: upper lobe of lung Qualified Code(s): C34.11 - Malignant neoplasm of upper lobe, right bronchus or lung Is this a current diagnosis for this admission?: Yes Plan: History of lung cancer diagnosed in 2014 with chemoradiation done in 2016. Follows with Dr. Key Patient and reports that currently stable and has not needed chemo in over a year. (6) Obstructive sleep apnea Is this a current diagnosis for this admission?: Yes Plan: History of obstructive sleep apnea. Does not have CPAP at home. As per patient he is scheduled to undergo nocturnal polysomnography on 06/27/2019. Continue nocturnal CPAP.
[2019-06-16] MEDS: GABAPENTIN 300 MG CAPSULE PO SCH (21:34)
[2019-06-16] MEDS: ATORVASTATIN CALCIUM 20 MG TABLET PO SCH (21:34)
[2019-06-17] MEDS: IPRATROPIUM/ALBUTEROL 0.5-2.5 MG/3 ML AMPUL NEB SCH ×3 (00:26→15:55)
[2019-06-17] MEDS: METHYLPREDNISOLONE INJ 125 MG/2 ML SDV IV SCH ×3 (05:15→21:35)
[2019-06-17 06:43] LABS: ARTERIAL BLOOD BASE EXCESS 20.8 mmol/L; ARTERIAL BLOOD FIO2 35%; ARTERIAL BLOOD H2CO3 2.75 mmol/L (1.05-1.35); ARTERIAL BLOOD HCO3 52.7 mmol/L (20-24); ARTERIAL BLOOD O2 SATURATION 96.1 % (94-98); ARTERIAL BLOOD PH 7.38 (7.35-7.45); ARTERIAL BLOOD PO2 89.6 mmHg (80-100); ARTERIAL BLOOD TOTAL CO2 55.5 mmol/L (23-27)
[2019-06-17 06:44] LABS: ARTERIAL BLOOD PCO2 91.5 mmHg (35-45)
[2019-06-17] MEDS: INSULIN LISPRO 100 UNIT/ML 3 ML VIAL SUBCUT SCH ×4 (08:54→21:33)
[2019-06-17] MEDS: GABAPENTIN 100 MG CAPSULE PO SCH ×2 (09:39→17:19)
[2019-06-17] MEDS: FUROSEMIDE 20 MG TABLET PO SCH ×2 (09:39→17:19)
[2019-06-17] MEDS: FLUTICASONE/VILANTEROL 200-25 MCG/DOSE IH SCH (09:39)
[2019-06-17] MEDS: FOLIC ACID 1 MG TABLET PO SCH (09:39)
[2019-06-17] MEDS: ENOXAPARIN SODIUM INJ 40 MG/0.4 ML DISP.SYRIN SUBCUT SCH (09:40)
--- NOTE | 2019-06-17 12:42 | PDOC PROGRESS REPORT ---
Subjective Progress Note for:: 06/17/19 Subjective:: FRANCESCO MARIANO is a 68 year old male with history of right upper lobe lung cancer status post chemoradiation in remission, type 2 diabetes mellitus, COPD, who presents to the hospital with complaints of progressive shortness of breath over the past 4 to 5 days. Patient has also been endorsed some chest tightness on occasion but none currently. Associated with cough which is nonproductive but worsened from patient's baseline. Patient denies history of CHF. Patient noted to be hypoxic with work of breathing by ER physician on presentation and was placed on BiPAP therapy. Patient also admits to lower extremity swelling which is new for the past 6 days. Patient endorses recent episode of rhinorrhea and coryza. Admits to PND. Denies orthopnea, chest pain, fever or chills. During encounter, I placed patient on room air to which he dropped to 82% SPO2, but went up to 90-92% on 2L NC. Subsequently became mildly tachypneic so placed back on BiPAP. 06/15/2019. No acute events overnight. Patient currently resting in bed no apparent distress, denies any fever, chills, nausea, vomiting, diarrhea, constipation or urinary symptoms. Still BiPAP and supplemental oxygen dependent. 06/16/2019. No acute events overnight. Comfortably sitting in bed in no apparent distress. Repeat ABG shows mild improvement of hypoxia however patient still has significant hypercapnia. 06/17/2019. No acute events overnight. Patient comfortably resting in bed no apparent distress. Unfortunately patient is still having significant hypercarbia. Reason For Visit: COPD EXACERBATION, CHF Physical Exam Vital Signs: Temp Pulse Resp BP Pulse Ox 97.2 F 63 16 110/72 92 06/17/19 07:55 06/17/19 08:15 06/17/19 08:15 06/17/19 07:55 06/17/19 08:15 Intake & Output 06/16/19 06/17/19 06/18/19 06:59 06:59 06:59 Intake Total 1177 1130 360 Output Total 1800 2500 300 Balance -623 -1370 60 Weight 97.2 kg 96.5 kg General appearance: PRESENT: obese Head exam: PRESENT: atraumatic, normocephalic Respiratory exam: PRESENT: clear to auscultation benjy. ABSENT: rales, rhonchi, wheezes Cardiovascular exam: PRESENT: RRR. ABSENT: diastolic murmur, rubs, systolic murmur GI/Abdominal exam: PRESENT: normal bowel sounds, soft. ABSENT: distended, guarding, mass, organolmegaly, rebound, tenderness Neurological exam: PRESENT: alert, awake, oriented to person, oriented to place, oriented to time, oriented to situation, CN II-XII grossly intact. ABSENT: motor sensory deficit Results Laboratory Results: 06/15/19 05:59 06/15/19 05:59 06/17/19 06:30 Carbonic Acid 2.75 H HCO3/H2CO3 Ratio 19:1 ABG pH 7.38 ABG pCO2 91.5 H* ABG pO2 89.6 ABG HCO3 52.7 H ABG O2 Saturation 96.1 ABG Base Excess 20.8 FiO2 35% 06/13/19 06/13/19 06/14/19 10:51 14:28 06:02 Troponin I 0.067 0.060 NT-Pro-B Natriuret Pep 2960 H 2470 H Impressions: Chest X-Ray 06/13/19 10:48 IMPRESSION: Stable right apical consolidation compared to prior CT. Enlarged cardiac silhouette with possible mild interstitial edema. No significant effusion. Chest/Abdomen CTA 06/13/19 12:19 IMPRESSION: 1. There is no pulmonary embolus. There is no aortic aneurysm or dissection. 2. Stable right upper lobe mass and right pleural effusion. 3. Mediastinal adenopathy, stable Assessment and Plan - Diagnosis (1) Acute on chronic respiratory failure with hypoxia and hypercapnia Is this a current diagnosis for this admission?: Yes Plan: History of O2 dependent COPD. Uses 1 L/julia as needed. Most likely due to acute COPD exacerbation complicated by history of DESTINY Repeat blood gas improvement of hypoxia however still significant hypercarbia. Alert and oriented in no apparent distress. Continue duo nebs, IV steroids, LABA, LABA, ICS. Duo nebs, pulmonary toileting, incentive spirometry. (2) Obstructive sleep apnea Is this a current diagnosis for this admission?: Yes Plan: History of obstructive sleep apnea. Does not have CPAP at home. As per patient he is scheduled to undergo nocturnal polysomnography on 06/27/2019. Unfortunately patient is still having significant CO2 retention and may not be safe to discharge home without arranging home CPAP/BiPAP. Have consulted Dr. Angulo health and wellness instructor for possible help and to setting up trilogy at home for patient. Continue nocturnal CPAP. (3) Acute pulmonary edema Is this a current diagnosis for this admission?: Yes Plan: Secondary to #1. Concern for new onset heart failure given lower extremity swelling and PND and proBNP 2960 on admission. Troponin 0.060, 0.067 06/13/2019 2D echo LVEF 55%. Grade 2/4 diastolic dysfunction. Mild concentric left ventricular hypertrophy. RSVP 35 to 40 mmHg. EKG no acute changes except for incomplete right bundle branch block and left anterior fascicular block. Unchanged from 09/12/2014. Cardiac diet, IV diuretics, strict in and out, fluid restriction. (4) COPD exacerbation Is this a current diagnosis for this admission?: Yes Plan: As per #1. (5) Diabetes mellitus type 2 in obese Is this a current diagnosis for this admission?: Yes Plan: Sliding scale insulin, hold metformin for 48h given contrast with CT ISS, carb restricted diet, Accu-Cheks (6) Lung cancer Qualifiers: Laterality: right Lung location: upper lobe of lung Qualified Code(s): C34.11 - Malignant neoplasm of upper lobe, right bronchus or lung Is this a current diagnosis for this admission?: Yes Plan: History of lung cancer diagnosed in 2015 with chemoradiation done in 2016. Follows with Dr. Key As per patient and family he has been cancer free for over 1 year.
[2019-06-17] MEDS: METFORMIN HCL 500 MG TABLET PO SCH (17:19)
[2019-06-17] MEDS: GABAPENTIN 300 MG CAPSULE PO SCH (21:35)
[2019-06-17] MEDS: ATORVASTATIN CALCIUM 20 MG TABLET PO SCH (21:35)
[2019-06-18] MEDS: IPRATROPIUM/ALBUTEROL 0.5-2.5 MG/3 ML AMPUL NEB SCH ×3 (00:38→16:09)
[2019-06-18] MEDS: METHYLPREDNISOLONE INJ 125 MG/2 ML SDV IV SCH ×3 (05:29→21:19)
[2019-06-18 07:20] LABS: ARTERIAL BLOOD BASE EXCESS 20.3 mmol/L; ARTERIAL BLOOD FIO2 28%; ARTERIAL BLOOD H2CO3 2.65 mmol/L (1.05-1.35); ARTERIAL BLOOD HCO3 51.9 mmol/L (20-24); ARTERIAL BLOOD O2 SATURATION 93.3 % (94-98); ARTERIAL BLOOD PH 7.39 (7.35-7.45); ARTERIAL BLOOD PO2 71.9 mmHg (80-100); ARTERIAL BLOOD TOTAL CO2 54.6 mmol/L (23-27)
[2019-06-18 07:23] LABS: ARTERIAL BLOOD PCO2 87.9 mmHg (35-45)
[2019-06-18] MEDS: INSULIN LISPRO 100 UNIT/ML 3 ML VIAL SUBCUT SCH ×4 (08:59→21:22)
[2019-06-18] MEDS: METFORMIN HCL 500 MG TABLET PO SCH ×2 (09:20→17:24)
[2019-06-18] MEDS: FUROSEMIDE 20 MG TABLET PO SCH ×2 (09:20→17:24)
[2019-06-18] MEDS: GABAPENTIN 100 MG CAPSULE PO SCH ×2 (09:20→17:25)
[2019-06-18] MEDS: FLUTICASONE/VILANTEROL 200-25 MCG/DOSE IH SCH (09:21)
[2019-06-18] MEDS: ENOXAPARIN SODIUM INJ 40 MG/0.4 ML DISP.SYRIN SUBCUT SCH (09:21)
[2019-06-18] MEDS: FOLIC ACID 1 MG TABLET PO SCH (09:21)
[2019-06-18] MEDS: GABAPENTIN 300 MG CAPSULE PO SCH (21:19)
[2019-06-18] MEDS: ATORVASTATIN CALCIUM 20 MG TABLET PO SCH (21:19)
[2019-06-19] MEDS: IPRATROPIUM/ALBUTEROL 0.5-2.5 MG/3 ML AMPUL NEB SCH ×3 (00:22→16:39)
[2019-06-19] MEDS: METHYLPREDNISOLONE INJ 125 MG/2 ML SDV IV SCH ×3 (05:20→22:14)
[2019-06-19 06:53] LABS: ARTERIAL BLOOD BASE EXCESS 16.2 mmol/L; ARTERIAL BLOOD H2CO3 2.26 mmol/L (1.05-1.35); ARTERIAL BLOOD O2 SATURATION 94.4 % (94-98); ARTERIAL BLOOD PO2 74.5 mmHg (80-100); ARTERIAL BLOOD TOTAL CO2 48.3 mmol/L (23-27)
[2019-06-19 07:00] LABS: ARTERIAL BLOOD FIO2 28%
[2019-06-19 07:01] LABS: ARTERIAL BLOOD PCO2 75.2 mmHg (35-45)
[2019-06-19] MEDS ORDERED: DEXTROSE 40% GEL 15 GM TUBE PO PRN ×2 (07:43)
[2019-06-19] MEDS ORDERED: DEXTROSE 50%-WATER 25 GM/50 ML DISP.SYRIN IV PRN ×2 (07:43)
[2019-06-19] MEDS ORDERED: GLUCAGON,HUMAN RECOMB 1 MG INJ IM PRN (07:43)
[2019-06-19] MEDS: INSULIN LISPRO 100 UNIT/ML 3 ML VIAL SUBCUT SCH ×4 (08:15→22:14)
[2019-06-19] MEDS: FOLIC ACID 1 MG TABLET PO SCH (09:18)
[2019-06-19] MEDS: ENOXAPARIN SODIUM INJ 40 MG/0.4 ML DISP.SYRIN SUBCUT SCH (09:18)
[2019-06-19] MEDS: FLUTICASONE/VILANTEROL 200-25 MCG/DOSE IH SCH (09:18)
[2019-06-19] MEDS: METFORMIN HCL 500 MG TABLET PO SCH ×2 (09:18→17:09)
[2019-06-19] MEDS: FUROSEMIDE 20 MG TABLET PO SCH ×2 (09:18→17:08)
[2019-06-19] MEDS: GABAPENTIN 100 MG CAPSULE PO SCH ×2 (09:18→17:09)
--- NOTE | 2019-06-19 11:29 | PDOC PROGRESS REPORT ---
Subjective Progress Note for:: 06/19/19 Subjective:: FRANCESCO MARIANO is a 68 year old male with history of right upper lobe lung cancer status post chemoradiation in remission, type 2 diabetes mellitus, COPD, who presents to the hospital with complaints of progressive shortness of breath over the past 4 to 5 days. Patient has also been endorsed some chest tightness on occasion but none currently. Associated with cough which is nonproductive but worsened from patient's baseline. Patient denies history of CHF. Patient noted to be hypoxic with work of breathing by ER physician on presentation and was placed on BiPAP therapy. Patient also admits to lower extremity swelling which is new for the past 6 days. Patient endorses recent episode of rhinorrhea and coryza. Admits to PND. Denies orthopnea, chest pain, fever or chills. During encounter, I placed patient on room air to which he dropped to 82% SPO2, but went up to 90-92% on 2L NC. Subsequently became mildly tachypneic so placed back on BiPAP. 06/15/2019. No acute events overnight. Patient currently resting in bed no apparent distress, denies any fever, chills, nausea, vomiting, diarrhea, constipation or urinary symptoms. Still BiPAP and supplemental oxygen dependent. 06/16/2019. No acute events overnight. Comfortably sitting in bed in no apparent distress. Repeat ABG shows mild improvement of hypoxia however patient still has significant hypercapnia. 06/17/2019. No acute events overnight. Patient comfortably resting in bed no apparent distress. Unfortunately patient is still having significant hypercarbia. 06/19/2019. No acute events overnight. Patient comfortably resting in bed no apparent distress. Unfortunately patient is still having significant hypercarbia. Pulmonology consulted pending recommendations. Reason For Visit: COPD EXACERBATION, CHF Physical Exam Vital Signs: Temp Pulse Resp BP Pulse Ox 97.3 F 59 L 16 114/66 94 06/19/19 07:49 06/19/19 08:25 06/19/19 08:25 06/19/19 07:49 06/19/19 08:25 Intake & Output 06/18/19 06/19/19 06/20/19 06:59 06:59 06:59 Intake Total 2500 4613 Output Total 4034 2440 Balance 175 2173 Weight 89.9 kg General appearance: PRESENT: obese Head exam: PRESENT: atraumatic, normocephalic Respiratory exam: PRESENT: clear to auscultation benjy. ABSENT: rales, rhonchi, wheezes Cardiovascular exam: PRESENT: RRR. ABSENT: diastolic murmur, rubs, systolic murmur GI/Abdominal exam: PRESENT: normal bowel sounds, soft. ABSENT: distended, guarding, mass, organolmegaly, rebound, tenderness Neurological exam: PRESENT: alert, awake, oriented to person, oriented to place, oriented to time, oriented to situation, CN II-XII grossly intact. ABSENT: motor sensory deficit Results Laboratory Results: 06/15/19 05:59 06/15/19 05:59 06/19/19 06:30 Carbonic Acid 2.26 H HCO3/H2CO3 Ratio 20:1 ABG pH 7.40 ABG pCO2 75.2 H* ABG pO2 74.5 L ABG HCO3 46.0 H ABG O2 Saturation 94.4 ABG Base Excess 16.2 FiO2 28% 06/13/19 06/13/19 06/14/19 10:51 14:28 06:02 Troponin I 0.067 0.060 NT-Pro-B Natriuret Pep 2960 H 2470 H Impressions: Chest X-Ray 06/13/19 10:48 IMPRESSION: Stable right apical consolidation compared to prior CT. Enlarged cardiac silhouette with possible mild interstitial edema. No significant effusion. Chest/Abdomen CTA 06/13/19 12:19 IMPRESSION: 1. There is no pulmonary embolus. There is no aortic aneurysm or dissection. 2. Stable right upper lobe mass and right pleural effusion. 3. Mediastinal adenopathy, stable Assessment and Plan - Diagnosis (1) Acute on chronic respiratory failure with hypoxia and hypercapnia Is this a current diagnosis for this admission?: Yes Plan: History of O2 dependent COPD. Uses 1 L/julia as needed. Most likely due to acute COPD exacerbation complicated by history of DESTINY/OHS Repeat blood gas improvement of hypoxia however still significant hypercarbia. Alert and oriented in no apparent distress. Continue duo nebs, IV steroids, LABA, LABA, ICS. Duo nebs, pulmonary toileting, incentive spirometry. (2) Obstructive sleep apnea Is this a current diagnosis for this admission?: Yes Plan: History of obstructive sleep apnea. Does not have CPAP at home. As per patient he is scheduled to undergo nocturnal polysomnography on 06/27/2019. Unfortunately patient is still having significant CO2 retention and may not be safe to discharge home without arranging home CPAP/BiPAP. Have consulted Dr. Angulo superintendent job for possible help and to setting up trilogy at home for patient. Continue nocturnal CPAP. (3) Acute pulmonary edema Is this a current diagnosis for this admission?: Yes Plan: Secondary to #1. Concern for new onset heart failure given lower extremity swelling and PND and proBNP 2960 on admission. Troponin 0.060, 0.067 06/13/2019 2D echo LVEF 55%. Grade 2/4 diastolic dysfunction. Mild concentric left ventricular hypertrophy. RSVP 35 to 40 mmHg. EKG no acute changes except for incomplete right bundle branch block and left anterior fascicular block. Unchanged from 09/12/2014. Cardiac diet, IV diuretics, strict in and out, fluid restriction. (4) COPD exacerbation Is this a current diagnosis for this admission?: Yes Plan: As per #1. (5) Diabetes mellitus type 2 in obese Is this a current diagnosis for this admission?: Yes Plan: Sliding scale insulin, hold metformin for 48h given contrast with CT ISS, carb restricted diet, Accu-Cheks (6) Lung cancer Qualifiers: Laterality: right Lung location: upper lobe of lung Qualified Code(s): C34.11 - Malignant neoplasm of upper lobe, right bronchus or lung Is this a current diagnosis for this admission?: Yes Plan: History of lung cancer diagnosed in 2015 with chemoradiation done in 2016. Follows with Dr. Key As per patient and family he has been cancer free for over 1 year.
[2019-06-19] MEDS: INSULIN GLARGINE,HUM.REC.ANLOG 1,000 UNIT/10 ML VIAL SUBCUT SCH (12:04)
[2019-06-19] MEDS: ATORVASTATIN CALCIUM 20 MG TABLET PO SCH (22:14)
[2019-06-19] MEDS: GABAPENTIN 300 MG CAPSULE PO SCH (22:14)
[2019-06-20] MEDS: IPRATROPIUM/ALBUTEROL 0.5-2.5 MG/3 ML AMPUL NEB SCH ×3 (00:47→16:02)
[2019-06-20] MEDS: METHYLPREDNISOLONE INJ 125 MG/2 ML SDV IV SCH (05:28)
[2019-06-20 06:43] LABS: ARTERIAL BLOOD BASE EXCESS 11.6 mmol/L; ARTERIAL BLOOD H2CO3 2.19 mmol/L (1.05-1.35); ARTERIAL BLOOD HCO3 40.9 mmol/L (20-24); ARTERIAL BLOOD PH 7.37 (7.35-7.45); ARTERIAL BLOOD PO2 87.2 mmHg (80-100); ARTERIAL BLOOD TOTAL CO2 43.2 mmol/L (23-27)
[2019-06-20 06:47] LABS: ARTERIAL BLOOD FIO2 28%
[2019-06-20 06:49] LABS: ARTERIAL BLOOD PCO2 72.6 mmHg (35-45)
[2019-06-20] MEDS: INSULIN LISPRO 100 UNIT/ML 3 ML VIAL SUBCUT SCH ×4 (08:47→21:16)
[2019-06-20] MEDS: FLUTICASONE/VILANTEROL 200-25 MCG/DOSE IH SCH (09:25)
[2019-06-20] MEDS: METFORMIN HCL 500 MG TABLET PO SCH ×2 (09:26→17:38)
[2019-06-20] MEDS: FOLIC ACID 1 MG TABLET PO SCH (09:26)
[2019-06-20] MEDS: FUROSEMIDE 20 MG TABLET PO SCH ×2 (09:26→17:38)
[2019-06-20] MEDS: ENOXAPARIN SODIUM INJ 40 MG/0.4 ML DISP.SYRIN SUBCUT SCH (09:28)
[2019-06-20] MEDS: INSULIN GLARGINE,HUM.REC.ANLOG 1,000 UNIT/10 ML VIAL SUBCUT SCH (09:28)
[2019-06-20] MEDS: GABAPENTIN 100 MG CAPSULE PO SCH ×2 (09:31→17:38)
--- NOTE | 2019-06-20 11:17 | PDOC CONSULTATION ---
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 He also worked at [employer] where he exposed was exposed to large amounts of wood grain and dust. He denies hemoptysis. His PPD is unknown no history of chronic lung disease as a child or adolescent admits to passive exposure to passive smoke as a child as well as an adult he admits to intermittent episodes of tightness in his chest that are relieved with rest. He admits to nocturia x2, unrestful sleep and daytime somnolence. Past Medical History Cardiac Medical History: Denies: Myocardial Infarction - [id number] MESSED UP, Hypertension Pulmonary Medical History: Reports: Chronic Obstructive Pulmonary Disease (COPD) Denies: Asthma EENT Medical History: Reports: Cataracts Neurological Medical History: Denies: Seizures Endocrine Medical History: Reports: Diabetes Mellitus Type 2 Denies: Hypothyroidism Renal/ Medical History: Reports: None Malignancy Medical History: Reports: Lung Cancer - Status post chemoradiation GI Medical History: Denies: Crohn's Disease, Hepatitis, Hiatal Hernia, Ulcerative Colitis Musculoskeltal Medical History: Denies: Fibromyalgia Skin Medical History: Denies: Psoriasis Psychiatric Medical History: Reports: Depression Traumatic Medical History: Denies: Traumatic Brain Injury Hematology: Denies: Anemia, Sickle Cell Disease Infectious Medical History: Denies: Methicillin-Resistant Staph Aureus Past Surgical History Past Surgical History: Reports: Other - Bilateral cataracts Denies: Pacemaker Social History Information Source: Patient, [facility] Records 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, 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 Lives with: Alone Smoking Status: Former Smoker Cigarettes Packs Per Day: 4 Number of Years Smokin Passive smoke exposure as: Both Frequency of Alcohol Use: Social Hx Recreational Drug Use: No Drugs: None Hx Prescription Drug Abuse: No Do you have pets?: No Have you had any respiratory illnesses as a child?: No Have you been exposed to any sick contacts recently?: No Have you had any recent respiratory illnesses?: No - Advance Directive Resuscitation Status: Full Code Family History Family History: DM, Hypertension Parental Family History Reviewed: Yes Children Family History Reviewed: Yes Sibling(s) Family History Reviewed.: Yes Medication/Allergy Home Medications: Albuterol Sulfate [Ventolin Hfa] 2 puff IH Q4HP PRN 11/17/17 Gabapentin 300 mg PO DAILY@1000,1200 11/17/17 Linagliptin [Tradjenta] 5 mg PO DAILY 11/17/17 Metformin HCl [Glucophage 500 mg Tablet] 1,000 mg PO BID 11/17/17 Rosuvastatin Calcium 10 mg PO QHS 11/17/17 Tramadol HCl 50 mg PO BIDP PRN 11/17/17 Empagliflozin [Jardiance] 10 mg PO DAILY 06/13/19 Gabapentin [Neurontin 300 mg Capsule] 600 mg PO QHS 06/13/19 Allergies/Adverse Reactions: vancomycin Allergy (Verified 11/17/17 15:09) Generalized rash Review of Systems All systems: reviewed and no additional remarkable complaints except as stated Physical Exam Vital Signs: Temp Pulse Resp BP Pulse Ox 97.2 F 63 16 110/72 92 06/17/19 07:55 06/17/19 08:15 06/17/19 08:15 06/17/19 07:55 06/17/19 08:15 Intake & Output 06/16/19 06/17/19 06/18/19 06:59 06:59 06:59 Intake Total 1177 1130 360 Output Total 1800 2500 300 Balance -623 -1370 60 Weight 97.2 kg 96.5 kg Results Laboratory Results: 06/15/19 05:59 06/15/19 05:59 06/17/19 06:30 Carbonic Acid 2.75 H HCO3/H2CO3 Ratio 19:1 ABG pH 7.38 ABG pCO2 91.5 H* ABG pO2 89.6 ABG HCO3 52.7 H ABG O2 Saturation 96.1 ABG Base Excess 20.8 FiO2 35% 06/13/19 06/13/19 06/14/19 10:51 14:28 06:02 Troponin I 0.067 0.060 NT-Pro-B Natriuret Pep 2960 H 2470 H Impressions: Chest X-Ray 06/13/19 10:48 IMPRESSION: Stable right apical consolidation compared to prior CT. Enlarged cardiac silhouette with possible mild interstitial edema. No significant effusion. Chest/Abdomen CTA 06/13/19 12:19 IMPRESSION: 1. There is no pulmonary embolus. There is no aortic aneurysm or dissection. 2. Stable right upper lobe mass and right pleural effusion. 3. Mediastinal adenopathy, stable Assessment & Plan - Diagnosis (1) Acute on chronic respiratory failure with hypoxia and hypercapnia Is this a current diagnosis for this admission?: Yes Plan: Decrease E-PAP from 12->8 titrate IPAP tidal volume approximately 500 to 550 cc (2) Lung cancer Qualifiers: Laterality: right Lung location: upper lobe of lung Qualified Code(s): C34.11 - Malignant neoplasm of upper lobe, right bronchus or lung Is this a current diagnosis for this admission?: Yes Plan: As per oncology (3) Obstructive sleep apnea Is this a current diagnosis for this admission?: Yes Plan: Central apneas witnessed to get sleep study as outpatient (4) Pleural effusion Is this a current diagnosis for this admission?: Yes Plan: Moderate right-sided pleural effusion patient may well benefit from thoracentesis (5) Pulmonary emphysema Qualifiers: Emphysema type: panlobular Qualified Code(s): J43.1 - Panlobular emphysema Is this a current diagnosis for this admission?: Yes Plan: Chronic CO2 retention; witnessed central apneas The above patient has failed BiPAP with a patent airway. This patient would benefit from noninvasive mechanical ventilation via the trilogy AVAPS/AE and faster responding AVAPS rates. The trilogy is able to provide a target tidal volume and also adjusting the EPAP pressures to maintain a patent airway as well as an oral backup rate this machine will help improve PaCO2 levels. The severity of the patient's condition will lead to future hospitalizations and readmissions as well as life-threatening situations without the use of this device day and night. Trilogy home vent needed for hypercapnic respiratory failure. [facility] or [facility] to follow for trilogy set up. - Time Time Spent: 50 to 70 Minutes
[2019-06-20] MEDS: GABAPENTIN 300 MG CAPSULE PO SCH (21:15)
[2019-06-20] MEDS: ATORVASTATIN CALCIUM 20 MG TABLET PO SCH (21:15)
[2019-06-21] MEDS: IPRATROPIUM/ALBUTEROL 0.5-2.5 MG/3 ML AMPUL NEB SCH ×2 (00:44→09:11)
--- NOTE | 2019-06-21 11:50 | PDOC PROGRESS REPORT ---
Subjective Progress Note for:: 06/20/19 Subjective:: FRANCESCO MARIANO is a 68 year old male with history of right upper lobe lung cancer status post chemoradiation in remission, type 2 diabetes mellitus, COPD, who presents to the hospital with complaints of progressive shortness of breath over the past 4 to 5 days. Patient has also been endorsed some chest tightness on occasion but none currently. Associated with cough which is nonproductive but worsened from patient's baseline. Patient denies history of CHF. Patient noted to be hypoxic with work of breathing by ER physician on presentation and was placed on BiPAP therapy. Patient also admits to lower extremity swelling which is new for the past 6 days. Patient endorses recent episode of rhinorrhea and coryza. Admits to PND. Denies orthopnea, chest pain, fever or chills. During encounter, I placed patient on room air to which he dropped to 82% SPO2, but went up to 90-92% on 2L NC. Subsequently became mildly tachypneic so placed back on BiPAP. 06/15/2019. No acute events overnight. Patient currently resting in bed no apparent distress, denies any fever, chills, nausea, vomiting, diarrhea, constipation or urinary symptoms. Still BiPAP and supplemental oxygen dependent. 06/16/2019. No acute events overnight. Comfortably sitting in bed in no apparent distress. Repeat ABG shows mild improvement of hypoxia however patient still has significant hypercapnia. 06/17/2019. No acute events overnight. Patient comfortably resting in bed no apparent distress. Unfortunately patient is still having significant hypercarbia. 06/19/2019. No acute events overnight. Patient comfortably resting in bed no apparent distress. Unfortunately patient is still having significant hypercarbia. Pulmonology consulted pending recommendations. 06/19/2019. No acute events overnight. Patient comfortably resting in bed no apparent distress. Unfortunately patient is still having significant hypercarbia. Pulmonology has ordered a trilogy however not been set up yet. Reason For Visit: COPD EXACERBATION, CHF Physical Exam Vital Signs: Temp Pulse Resp BP Pulse Ox 97.5 F 70 12 111/70 97 06/21/19 07:40 06/21/19 09:11 06/21/19 09:11 06/21/19 07:40 06/21/19 09:11 Intake & Output 06/20/19 06/21/19 06/22/19 06:59 06:59 06:59 Intake Total 3476 3810 Output Total 79 650 Balance 1784 1870 Weight 87.6 kg 96.6 kg General appearance: PRESENT: no acute distress, obese, well-developed, well-nourished Head exam: PRESENT: atraumatic, normocephalic Respiratory exam: PRESENT: clear to auscultation benjy. ABSENT: rales, rhonchi, wheezes Cardiovascular exam: PRESENT: RRR. ABSENT: diastolic murmur, rubs, systolic murmur GI/Abdominal exam: PRESENT: normal bowel sounds, soft. ABSENT: distended, guar ding, mass, organolmegaly, rebound, tenderness Neurological exam: PRESENT: alert, awake, oriented to person, oriented to place, oriented to time, oriented to situation, CN II-XII grossly intact. ABSENT: motor sensory deficit Results Laboratory Results: 06/15/19 05:59 06/15/19 05:59 06/13/19 06/13/19 06/14/19 10:51 14:28 06:02 Troponin I 0.067 0.060 NT-Pro-B Natriuret Pep 2960 H 2470 H Impressions: Chest X-Ray 06/13/19 10:48 IMPRESSION: Stable right apical consolidation compared to prior CT. Enlarged cardiac silhouette with possible mild interstitial edema. No significant effusion. Chest/Abdomen CTA 06/13/19 12:19 IMPRESSION: 1. There is no pulmonary embolus. There is no aortic aneurysm or dissection. 2. Stable right upper lobe mass and right pleural effusion. 3. Mediastinal adenopathy, stable Assessment and Plan - Diagnosis (1) Acute on chronic respiratory failure with hypoxia and hypercapnia Is this a current diagnosis for this admission?: Yes Plan: History of O2 dependent COPD. Uses 1 L/julia as needed. Most likely due to acute COPD exacerbation complicated by history of DESTINY/OHS Repeat blood gas improvement of hypoxia however still significant hypercarbia. Alert and oriented in no apparent distress. Continue duo nebs, IV steroids, LABA, LABA, ICS. Duo nebs, pulmonary toileting, incentive spirometry. (2) Obstructive sleep apnea Is this a current diagnosis for this admission?: Yes Plan: History of obstructive sleep apnea. Does not have CPAP at home. As per patient he is scheduled to undergo nocturnal polysomnography on 06/27/2019. Unfortunately patient is still having significant CO2 retention and may not be safe to discharge home without arranging home CPAP/BiPAP. Dr. Angulo from pulmonology has been consulted, he has ordered trilogy but has not been set up yet. Continue nocturnal CPAP. (3) Acute pulmonary edema Is this a current diagnosis for this admission?: Yes Plan: Secondary to #1. Concern for new onset heart failure given lower extremity swelling and PND and proBNP 2960 on admission. Troponin 0.060, 0.067 06/13/2019 2D echo LVEF 55%. Grade 2/4 diastolic dysfunction. Mild concentric left ventricular hypertrophy. RSVP 35 to 40 mmHg. EKG no acute changes except for incomplete right bundle branch block and left anterior fascicular block. Unchanged from 09/12/2014. Cardiac diet, IV diuretics, strict in and out, fluid restriction. (4) COPD exacerbation Is this a current diagnosis for this admission?: Yes Plan: As per #1. (5) Diabetes mellitus type 2 in obese Is this a current diagnosis for this admission?: Yes Plan: Sliding scale insulin, hold metformin for 48h given contrast with CT ISS, carb restricted diet, Accu-Cheks (6) Lung cancer Qualifiers: Laterality: right Lung location: upper lobe of lung Qualified Code(s): C34.11 - Malignant neoplasm of upper lobe, right bronchus or lung Is this a current diagnosis for this admission?: Yes Plan: History of lung cancer diagnosed in 2015 with chemoradiation done in 2016. Follows with Dr. Key As per patient and family he has been cancer free for over 1 year.
--- NOTE | 2019-06-21 11:53 | PDOC PROGRESS REPORT ---
Subjective Progress Note for:: 06/21/19 Subjective:: FRANCESCO MARIANO is a 68 year old male with history of right upper lobe lung cancer status post chemoradiation in remission, type 2 diabetes mellitus, COPD, who presents to the hospital with complaints of progressive shortness of breath over the past 4 to 5 days. Patient has also been endorsed some chest tightness on occasion but none currently. Associated with cough which is nonproductive but worsened from patient's baseline. Patient denies history of CHF. Patient noted to be hypoxic with work of breathing by ER physician on presentation and was placed on BiPAP therapy. Patient also admits to lower extremity swelling which is new for the past 6 days. Patient endorses recent episode of rhinorrhea and coryza. Admits to PND. Denies orthopnea, chest pain, fever or chills. During encounter, I placed patient on room air to which he dropped to 82% SPO2, but went up to 90-92% on 2L NC. Subsequently became mildly tachypneic so placed back on BiPAP. 06/15/2019. No acute events overnight. Patient currently resting in bed no apparent distress, denies any fever, chills, nausea, vomiting, diarrhea, constipation or urinary symptoms. Still BiPAP and supplemental oxygen dependent. 06/16/2019. No acute events overnight. Comfortably sitting in bed in no apparent distress. Repeat ABG shows mild improvement of hypoxia however patient still has significant hypercapnia. 06/17/2019. No acute events overnight. Patient comfortably resting in bed no apparent distress. Unfortunately patient is still having significant hypercarbia. 06/19/2019. No acute events overnight. Patient comfortably resting in bed no apparent distress. Unfortunately patient is still having significant hypercarbia. Pulmonology consulted pending recommendations. 06/20/2019. No acute events overnight. Patient comfortably resting in bed no apparent distress. Unfortunately patient is still having significant hypercarbia. Pulmonology has ordered a trilogy however not been set up yet. 06/21/2019. No acute events overnight. Patient comfortably resting in bed no apparent distress. Unfortunately patient is still having significant hypercarbia. Patient is still waiting for his trilogy to be set up. Reason For Visit: COPD EXACERBATION, CHF Physical Exam Vital Signs: Temp Pulse Resp BP Pulse Ox 97.5 F 70 12 111/70 97 06/21/19 07:40 06/21/19 09:11 06/21/19 09:11 06/21/19 07:40 06/21/19 09:11 Intake & Output 06/20/19 06/21/19 06/22/19 06:59 06:59 06:59 Intake Total 2579 2520 Output Total 795 650 Balance 1784 1870 Weight 87.6 kg 96.6 kg General appearance: PRESENT: obese Head exam: PRESENT: atraumatic, normocephalic Respiratory exam: PRESENT: clear to auscultation benjy. ABSENT: rales, rhonchi, wheezes Cardiovascular exam: PRESENT: RRR. ABSENT: diastolic murmur, rubs, systolic murmur GI/Abdominal exam: PRESENT: normal bowel sounds, soft. ABSENT: distended, guarding, mass, organolmegaly, rebound, tenderness Extremities exam: PRESENT: full ROM. ABSENT: calf tenderness, clubbing, pedal edema Neurological exam: PRESENT: alert, awake, oriented to person, oriented to place, oriented to time, oriented to situation, CN II-XII grossly intact. ABSENT: motor sensory deficit Results Laboratory Results: 06/15/19 05:59 06/15/19 05:59 06/13/19 06/13/19 06/14/19 10:51 14:28 06:02 Troponin I 0.067 0.060 NT-Pro-B Natriuret Pep 2960 H 2470 H Impressions: Chest X-Ray 06/13/19 10:48 IMPRESSION: Stable right apical consolidation compared to prior CT. Enlarged cardiac silhouette with possible mild interstitial edema. No significant effusion. Chest/Abdomen CTA 06/13/19 12:19 IMPRESSION: 1. There is no pulmonary embolus. There is no aortic aneurysm or dissection. 2. Stable right upper lobe mass and right pleural effusion. 3. Mediastinal adenopathy, stable Assessment and Plan - Diagnosis (1) Acute on chronic respiratory failure with hypoxia and hypercapnia Is this a current diagnosis for this admission?: Yes Plan: History of O2 dependent COPD. Uses 1 L/julia as needed. Most likely due to acute COPD exacerbation complicated by history of DESTINY/OHS Repeat blood gas improvement of hypoxia however still significant hypercarbia. Alert and oriented in no apparent distress. Continue duo nebs, IV steroids, LABA, LABA, ICS. Duo nebs, pulmonary toileting, incentive spirometry. (2) Obstructive sleep apnea Is this a current diagnosis for this admission?: Yes Plan: History of obstructive sleep apnea. Does not have CPAP at home. As per patient he is scheduled to undergo nocturnal polysomnography on 06/27/2019. Unfortunately patient is still having significant CO2 retention and may not be safe to discharge home without arranging home CPAP/BiPAP. Dr. Angulo from pulmonology has been consulted, he has ordered trilogy but has not been set up yet. Continue nocturnal CPAP. (3) Acute pulmonary edema Is this a current diagnosis for this admission?: Yes Plan: Secondary to #1. Concern for new onset heart failure given lower extremity swelling and PND and proBNP 2960 on admission. Troponin 0.060, 0.067 06/13/2019 2D echo LVEF 55%. Grade 2/4 diastolic dysfunction. Mild concentric left ventricular hypertrophy. RSVP 35 to 40 mmHg. EKG no acute changes except for incomplete right bundle branch block and left anterior fascicular block. Unchanged from 09/12/2014. Cardiac diet, IV diuretics, strict in and out, fluid restriction. (4) COPD exacerbation Is this a current diagnosis for this admission?: Yes Plan: As per #1. (5) Diabetes mellitus type 2 in obese Is this a current diagnosis for this admission?: Yes Plan: Sliding scale insulin, hold metformin for 48h given contrast with CT ISS, carb restricted diet, Accu-Cheks (6) Lung cancer Qualifiers: Laterality: right Lung location: upper lobe of lung Qualified Code(s): C34.11 - Malignant neoplasm of upper lobe, right bronchus or lung Is this a current diagnosis for this admission?: Yes Plan: History of lung cancer diagnosed in 2015 with chemoradiation done in 2016. Follows with Dr. Key As per patient and family he has been cancer free for over 1 year.
[2019-06-21] MEDS: INSULIN LISPRO 100 UNIT/ML 3 ML VIAL SUBCUT SCH ×2 (12:02→12:03)
[2019-06-21] MEDS: FLUTICASONE/VILANTEROL 200-25 MCG/DOSE IH SCH (12:09)
[2019-06-21] MEDS: FUROSEMIDE 20 MG TABLET PO SCH (12:10)
[2019-06-21] MEDS: METFORMIN HCL 500 MG TABLET PO SCH (12:10)
[2019-06-21] MEDS: ENOXAPARIN SODIUM INJ 40 MG/0.4 ML DISP.SYRIN SUBCUT SCH (12:10)
[2019-06-21] MEDS: INSULIN GLARGINE,HUM.REC.ANLOG 1,000 UNIT/10 ML VIAL SUBCUT SCH (12:10)
[2019-06-21] MEDS: GABAPENTIN 100 MG CAPSULE PO SCH (12:10)
[2019-06-21] MEDS: FOLIC ACID 1 MG TABLET PO SCH (12:10)
[2019-06-21 13:53] VITALS: BP 111/62
--- NOTE | 2019-06-21 14:39 | PDOC DISCHARGE SUMMARY ---
Impression - Admit/DC Date/PCP Admission Date/Primary Care Provider: 06/13/19 12:29 BRADLEY LOCKWOOD PA-C Discharge Date: 06/21/19 - Discharge Diagnosis (1) Acute on chronic respiratory failure with hypoxia and hypercapnia Is this a current diagnosis for this admission?: Yes (2) Obstructive sleep apnea Is this a current diagnosis for this admission?: Yes (3) Acute pulmonary edema Is this a current diagnosis for this admission?: Yes (4) COPD exacerbation Is this a current diagnosis for this admission?: Yes (5) Diabetes mellitus type 2 in obese Is this a current diagnosis for this admission?: Yes (6) Lung cancer Is this a current diagnosis for this admission?: Yes - Additional Information Resuscitation Status: Full Code Discharge Diet: As Tolerated Discharge Activity: Activity As Tolerated, Balance Activity w/Rest Referrals: [facility] [Provider Group] - 07/01/19 2:00 pm Prescriptions: Fluticasone/Vilanterol [Breo 200-25 Mcg Ellipta 14 Dose/Dpi] 1 inh IH DAILY 30 Days #1 inhaler Home Medications: Albuterol Sulfate [Ventolin Hfa] 2 puff IH Q4HP PRN 11/17/17 Gabapentin 300 mg PO DAILY@1000,1200 11/17/17 Linagliptin [Tradjenta] 5 mg PO DAILY 11/17/17 Metformin HCl [Glucophage 500 mg Tablet] 1,000 mg PO BID 11/17/17 Rosuvastatin Calcium 10 mg PO QHS 11/17/17 Tramadol HCl 50 mg PO BIDP PRN 11/17/17 Empagliflozin [Jardiance] 10 mg PO DAILY 06/13/19 Gabapentin [Neurontin 300 mg Capsule] 600 mg PO QHS 06/13/19 Fluticasone/Vilanterol [Breo 200-25 Mcg Ellipta 14 Dose/Dpi] 1 inh IH DAILY 30 Days #1 inhaler 06/21/19 History of Present Illiness History of Present Illness: FRANCESCO MARIANO is a 68 year old male with history of right upper lobe lung cancer status post chemoradiation in remission, type 2 diabetes mellitus, COPD, who presents to the hospital with complaints of progressive shortness of breath over the past 4 to 5 days. Patient has also been endorsed some chest tightness on occasion but none currently. Associated with cough which is nonproductive but worsened from patient's baseline. Patient denies history of CHF. Patient noted to be hypoxic with work of breathing by ER physician on presentation and was placed on BiPAP therapy. Patient also admits to lower extremity swelling which is new for the past 6 days. Patient endorses recent episode of rhinorrhea and coryza. Admits to PND. Denies orthopnea, chest pain, fever or chills. During encounter, I placed patient on room air to which he dropped to 82% SPO2, but went up to 90-92% on 2L NC. Subsequently became mildly tachypneic so placed back on BiPAP. Hospital Course Hospital Course: (1) Acute on chronic respiratory failure with hypoxia and hypercapnia History of O2 dependent COPD. Uses 1 L/julia as needed. Most likely due to acute COPD exacerbation complicated by history of DESTINY/OHS Repeated ABG showed persistent hypercarbia. Alert and oriented in no apparent distress. Was a started on duo nebs, IV steroids, LABA, LABA, ICS, pulmonary toileting, incentive spirometry. Requesting pulmonology was consulted. Trilogy ordered. Trilogy has been set up and delivered. Patient discharged home to follow with pulmonology. (2) Obstructive sleep apnea History of obstructive sleep apnea. Does not have CPAP at home. As per patient he is scheduled to undergo nocturnal polysomnography on 06/27/2019. (3) Acute pulmonary edema Secondary to #1. Concern for new onset heart failure given lower extremity swelling and PND and proBNP 2960 on admission. Troponin 0.060, 0.067 06/13/2019 2D echo LVEF 55%. Grade 2/4 diastolic dysfunction. Mild concentric left ventricular hypertrophy. RSVP 35 to 40 mmHg. EKG no acute changes except for incomplete right bundle branch block and left anterior fascicular block. Unchanged from 09/12/2014. Was a started on cardiac diet, IV diuretics, strict in and out, fluid restriction. Euvolemic at the time of discharge. SPO2 WNL on 2 L nasal cannula. (4) COPD exacerbation As per #1. (5) Diabetes mellitus type 2 in obese Controlled. Takes metformin at home. Patient has some hyperglycemia during this admission most likely due to IV steroid receiving for COPD exacerbation. Was started on diabetic diet, sliding scale insulin, long-acting insulin, hypoglycemic protocol and Accu-Chek. Advised to restart home meds upon discharge and follow-up with PCP. (6) Lung cancer History of lung cancer diagnosed in 2015 with chemoradiation done in 2016. Follows with Dr. Key As per patient and family he has been cancer free for over 1 year. Physical Exam Vital Signs: Temp Pulse Resp BP Pulse Ox 98.4 F 77 16 111/62 98 06/21/19 13:51 06/21/19 13:51 06/21/19 13:51 06/21/19 13:51 06/21/19 13:51 Intake & Output 06/20/19 06/21/19 06/22/19 06:59 06:59 06:59 Intake Total 2579 2520 590 Output Total 795 650 Balance 1784 1870 590 Weight 87.6 kg 96.6 kg General appearance: PRESENT: obese Head exam: PRESENT: atraumatic, normocephalic Neck exam: ABSENT: carotid bruit, JVD, lymphadenopathy, thyromegaly Respiratory exam: PRESENT: clear to auscultation benjy. ABSENT: rales, rhonchi, wheezes Cardiovascular exam: PRESENT: RRR. ABSENT: diastolic murmur, rubs, systolic murmur GI/Abdominal exam: PRESENT: normal bowel sounds, soft. ABSENT: distended, guarding, mass, organolmegaly, rebound, tenderness Neurological exam: PRESENT: alert, awake, oriented to person, oriented to place, oriented to time, oriented to situation, CN II-XII grossly intact. ABSENT: motor sensory deficit Results Laboratory Results: WBC 6.6 10^3/uL (4.0-10.5) 06/15/19 05:59 RBC 4.72 10^6/uL (4.35-5.55) 06/15/19 05:59 Hgb 14.9 g/dL (13.5-17.0) 06/15/19 05:59 Hct 45.7 % (37.9-51.0) 06/15/19 05:59 MCV 97 fl (80-97) 06/15/19 05:59 MCH 31.7 pg (27.0-33.4) 06/15/19 05:59 MCHC 32.7 g/dL (32.0-36.0) 06/15/19 05:59 RDW 15.6 % (11.5-14.0) H 06/15/19 05:59 Plt Count 302 10^3/uL (150-450) 06/15/19 05:59 Lymph % (Auto) 5.7 % (13-45) L 06/15/19 05:59 [place] % (Auto) 3.5 % (3-13) 06/15/19 05:59 Eos % (Auto) 0.0 % (0-6) 06/15/19 05:59 Baso % (Auto) 0.1 % (0-2) 06/15/19 05:59 Absolute Neuts (auto) 6.0 10^3/uL (1.7-8.2) 06/15/19 05:59 Absolute Lymphs (auto) 0.4 10^3/uL (0.5-4.7) L 06/15/19 05:59 Absolute Monos (auto) 0.2 10^3/uL (0.1-1.4) 06/15/19 05:59 Absolute Eos (auto) 0.0 10^3/uL (0.0-0.6) 06/15/19 05:59 Absolute Basos (auto) 0.0 10^3/uL (0.0-0.2) 06/15/19 05:59 Seg Neutrophils % 90.7 % (42-78) H 06/15/19 05:59 Carbonic Acid 2.19 mmol/L (1.05-1.35) H 06/20/19 06:20 HCO3/H2CO3 Ratio 18:1 06/20/19 06:20 ABG pH 7.37 (7.35-7.45) 06/20/19 06:20 ABG pCO2 72.6 mmHg (35-45) H* 06/20/19 06:20 ABG pO2 87.2 mmHg (80-100) 06/20/19 06:20 ABG HCO3 40.9 mmol/L (20-24) H 06/20/19 06:20 ABG Total CO2 43.2 mmol/L (23-27) H 06/20/19 06:20 ABG O2 Saturation 96.0 % (94-98) 06/20/19 06:20 ABG Base Excess 11.6 mmol/L 06/20/19 06:20 FiO2 28% 06/20/19 06:20 Sodium 135.5 mmol/L (137-145) L 06/15/19 05:59 Potassium 4.5 mmol/L (3.6-5.0) 06/15/19 05:59 Chloride 82 mmol/L (98-107) L 06/15/19 05:59 Carbon Dioxide 46 mmol/L (22-30) H* 06/15/19 05:59 Anion Gap 8 (5-19) 06/15/19 05:59 BUN 27 mg/dL (7-20) H 06/15/19 05:59 Creatinine 0.95 mg/dL (0.52-1.25) 06/15/19 05:59 Est GFR ( Amer) > 60 (>60) 06/15/19 05:59 Est GFR (MDRD) Non-Af > 60 (>60) 06/15/19 05:59 Glucose 183 mg/dL (75-110) H 06/15/19 05:59 POC Glucose 250 mg/dL (70-110) H 06/21/19 11:16 Lactic Acid 1.6 mmol/L (0.7-2.1) 06/13/19 11:11 Calcium 9.1 mg/dL (8.4-10.2) 06/15/19 05:59 Magnesium 2.1 mg/dL (1.6-2.3) 06/14/19 06:02 Total Bilirubin 0.4 mg/dL (0.2-1.3) 06/15/19 05:59 Direct Bilirubin 0.3 mg/dL (0.0-0.4) 06/15/19 05:59 Neonat Total Bilirubin Not Reportable 06/15/19 05:59 Neonat Direct Bilirubin Not Reportable 06/15/19 05:59 Neonat Indirect Bili Not Reportable 06/15/19 05:59 AST 18 U/L (17-59) 06/15/19 05:59 ALT 13 U/L (<50) 06/15/19 05:59 Alkaline Phosphatase 71 U/L (38-126) 06/15/19 05:59 Troponin I 0.060 ng/mL 06/13/19 14:28 NT-Pro-B Natriuret Pep 2470 pg/mL (<125) H 06/14/19 06:02 Total Protein 7.4 g/dL (6.3-8.2) 06/15/19 05:59 Albumin 3.2 g/dL (3.5-5.0) L 06/15/19 05:59 TSH 0.56 uIU/mL (0.47-4.68) 06/14/19 06:02 Influenza A (Rapid) NEGATIVE (NEGATIVE) 06/13/19 15:32 Influenza B (Rapid) NEGATIVE (NEGATIVE) 06/13/19 15:32 06/13/19 06/13/19 06/14/19 10:51 14:28 06:02 Troponin I 0.067 0.060 NT-Pro-B Natriuret Pep 2960 H 2470 H Impressions: Chest X-Ray 06/13/19 10:48 IMPRESSION: Stable right apical consolidation compared to prior CT. Enlarged cardiac silhouette with possible mild interstitial edema. No significant effusion. Chest/Abdomen CTA 06/13/19 12:19 IMPRESSION: 1. There is no pulmonary embolus. There is no aortic aneurysm or dissection. 2. Stable right upper lobe mass and right pleural effusion. 3. Mediastinal adenopathy, stable Stroke Is this a Stroke Patient?: No Acute Heart Failure - Is this a Heart Failure Patient?: No
== END 2019-06-21 14:30 | disposition home or self-care (01) | DRG 189 ==
LOC: ER 10:25 → EH 12:29 → 3S 18:20
PROVIDERS: ADMIT Internal Medicine; ATTEND Internal Medicine
PROC: 5A09557 Assistance with Respiratory Ventilation, Greater than 96 Consecutive Hours, Continuous Positive Airway Pressure (ICD-10-PCS; principal; 2019-06-13)
DX: J96.22 Acute and chronic respiratory failure with hypercapnia (principal); J81.0 Acute pulmonary edema; C34.11 Malignant neoplasm of upper lobe, right bronchus or lung; J90 Pleural effusion, not elsewhere classified; J43.1 Panlobular emphysema; J96.21 Acute and chronic respiratory failure with hypoxia; E11.9 Type 2 diabetes mellitus without complications; I10 Essential (primary) hypertension; Z87.891 Personal history of nicotine dependence; Z79.84 Long term (current) use of oral hypoglycemic drugs; Z83.3 Family history of diabetes mellitus; G47.33 Obstructive sleep apnea (adult) (pediatric); Z79.899 Other long term (current) drug therapy; Z99.81 Dependence on supplemental oxygen; Z92.21 Personal history of antineoplastic chemotherapy; F32.9 Major depressive disorder, single episode, unspecified; Z88.1 Allergy status to other antibiotic agents
CPT/HCPCS: 36415; 36600; 71045; 71275; 80053; 82803; 82962; 83605; 83735; 83880; 84443; 84484; 85025; 87804; 93005; 93010; 93306; 94640; 94660; 94667; 94799; 96365; 96375; 99285; J1650; J1815; J1940; J2920; J2930; J3475; J3490; J7620

== ENCOUNTER → 2019-11-03 | Outpatient (CLI) | payer MEDICARE ==
--- NOTE | 2019-11-03 12:58 | RADIOLOGY REPORT (SQ) ---
EXAM DESCRIPTION: CT CHEST WITHOUT IMAGES COMPLETED DATE/TIME: 11/03/2019 9:15 am REASON FOR STUDY: C34.11 MALIGNANT NEOPLASM OF UPPER LOBE, RIGHT BRONCHUS OR LUNG C34.11 MALIGNANT NEOPLASM OF UPPER LOBE, RIGHT BRONCHUS OR L COMPARISON: 06/13/2019 TECHNIQUE: CT scan performed of the chest without intravenous contrast. Images reviewed with lung, soft tissue and bone windows. Reconstructed coronal and sagittal MPR images reviewed. All images st ored on PACS. All CT scanners at this facility use dose modulation, iterative reconstruction, and/or weight based d osing when appropriate to reduce radiation dose to as low as reasonably achievable (ALARA). [facility]: Dose Right [facility]: CareDose [facility]: Dose Right [facility]: Teradose 4D [facility]: [employer] RADIATION DOSE: CT Rad equipment meets quality standard of care and radiation dose reduction techniq ues were employed. CTDIvol: 18.4 mGy. DLP: 708 mGy-cm. mGy. LIMITATIONS: No technical limitations. FINDINGS: LUNGS AND PLEURA: Stable right upper lobe lung mass. Small stable right pleural effusion. HILAR AND MEDIASTINAL STRUCTURES: Subcarinal adenopathy is stable. HEART AND VASCULAR STRUCTURES: No aneurysm. No pericardial effusion. Coronary artery calcifications . UPPER ABDOMEN: No significant findings. Limited exam. THYROID AND OTHER SOFT TISSUES: No masses. No adenopathy. BONES: No significant finding. HARDWARE: None in the chest. OTHER: No other significant findings. IMPRESSION: Stable right upper lobe lung mass with small stable right pleural effusion. Stable subc arinal adenopathy. TECHNICAL DOCUMENTATION: JOB ID: [id number] Quality ID # [id number]: Final reports with documentation of one or more dose reduction techniques (e.g., Au tomated exposure control, adjustment of the mA and/or kV according to patient size, use of iterative reconstruction technique) 2010 [employer]- All Rights Reserved Reading location - IP/workstation name: [email or web address]
== END ==
LOC: RAD 08:55
PROVIDERS: ATTEND Internal Medicine
DX: C34.11 Malignant neoplasm of upper lobe, right bronchus or lung (principal)
CPT/HCPCS: 71250

== ENCOUNTER → 2020-01-04 | Outpatient (CLI) | payer MEDICARE ==
--- NOTE | 2020-01-04 13:53 | RADIOLOGY REPORT (SQ) ---
EXAM DESCRIPTION: TIBIA FIBULA RIGHT IMAGES COMPLETED DATE/TIME: 01/04/2020 1:34 pm REASON FOR STUDY: OTHER SPECIFIED SOFT TISSUE DISORDERS (M79.89) M79.89 OTHER SPECIFIED SOFT TISSUE DISORDERS COMPARISON: None. NUMBER OF VIEWS: Two views. TECHNIQUE: Two radiographic images acquired of the right tibia and fibula to include the knee and an kle in at least one projection. LIMITATIONS: None. FINDINGS: MINERALIZATION: Normal. BONES: No acute fracture or dislocation. No worrisome bone lesions. SOFT TISSUES: No obvious swelling or foreign body. OTHER: No other significant finding. IMPRESSION: NEGATIVE STUDY OF THE RIGHT TIBIA AND FIBULA. NO RADIOGRAPHIC EVIDENCE OF ACUTE INJURY. TECHNICAL DOCUMENTATION: JOB ID: [id number] 2010 [employer]- All Rights Reserved Reading location - IP/workstation name: [email or web address]
--- NOTE | 2020-01-04 14:53 | RADIOLOGY REPORT (SQ) ---
EXAM DESCRIPTION: VENOUS UNILATERAL LOWER IMAGES COMPLETED DATE/TIME: 01/04/2020 2:22 pm REASON FOR STUDY: RLE SWELLING M79.89 OTHER SPECIFIED SOFT TISSUE DISORDERS COMPARISON: None. TECHNIQUE: Dynamic and static saravia scale and color images acquired of the right leg venous system. S elected spectral images acquired with additional compression and augmentation maneuvers. The contrala teral common femoral vein and saphenofemoral junction were also imaged. Images stored on PACS. LIMITATIONS: None. FINDINGS: COMMON FEMORAL: Normal phasicity, compression and augmentation. No visualized echogenic ma terial on saravia scale. No defects on color images. FEMORAL: Normal compression and augmentation. No visualized echogenic material on saravia scale. No defe cts on color images. POPLITEAL: Normal compression, augmentation. No visualized echogenic material on saravia scale. No defec ts on color images. CALF VESSELS: Normal compression, augmentation. No visualized echogenic material on saravia scale. No de fects on color images. GSV and SSV: Normal compression, augmentation. No visualized echogenic material on saravia scale. No def ects on color images. ANY DEEP VENOUS INSUFFICIENCY: Not evaluated. ANY EVIDENCE OF POPLITEAL CYST: No. OTHER: No other significant finding. CONTRALATERAL COMMON FEMORAL VEIN AND SAPHENOFEMORAL JUNCTION: Normal phasicity, compression and augmentation. No visualized echogenic material on saravia scale. No de fects on color images. IMPRESSION: NO EVIDENCE OF DVT OR SVT IN THE RIGHT LEG. TECHNICAL DOCUMENTATION: JOB ID: [id number] 2010 [employer]- All Rights Reserved Reading location - IP/workstation name: [email or web address]
== END ==
LOC: SP 12:58
PROVIDERS: ATTEND Internal Medicine
DX: M79.89 Other specified soft tissue disorders (principal)
CPT/HCPCS: 93971

== ENCOUNTER → 2020-03-19 | Outpatient (CLI) | payer MEDICARE ==
--- NOTE | 2020-03-19 13:30 | RADIOLOGY REPORT (SQ) ---
EXAM DESCRIPTION: CT CHEST WITH IMAGES COMPLETED DATE/TIME: 03/19/2020 10:19 am REASON FOR STUDY: C34.11 MALIGNANT NEOPLASM OF UPPER LOBE, RIGHT BRONCHUS OR LUNG C34.11 MALIGNANT NEOPLASM OF UPPER LOBE, RIGHT BRONCHUS OR L. follow-up. Non-small cell lung cancer. COMPARISON: 11/03/2019. 06/13/2019. PET CT, 08/30/2017. TECHNIQUE: CT scan of the chest performed using helical scanning technique with dynamic intravenous contrast injection. Images reviewed with lung, soft tissue and bone windows. Reconstructed coronal and sagittal MPR and MIP images reviewed. All images stored on PACS. All CT scanners at this facility use dose modulation, iterative reconstruction, and/or weight based d osing when appropriate to reduce radiation dose to as low as reasonably achievable (ALARA). [facility]: Dose Right [facility]: CareDose [facility]: Dose Right [facility]: Teradose 4D [facility]: [id number] CONTRAST TYPE AND DOSE: contrast/concentration: Isovue 350.00 mmol/ml; Total Contrast Delivered: 80. 0 ml; Total Saline Delivered: 50.0 ml RENAL FUNCTION: Do not RADIATION DOSE: CT Rad equipment meets quality standard of care and radiation dose reduction techniq ues were employed. CTDIvol: 16.3 mGy. DLP: 578 mGy-cm. . LIMITATIONS: None. FINDINGS: LUNGS AND PLEURA: Trachea has normal caliber and appearance. Small amount of endobronchia l secretions in the right mainstem bronchus with a linear configuration consistent with retained secr etions/11. Wedge shaped consolidation/atelectasis at the right upper lobe, consistent with posttreat ment change, stable from prior. There is associated bronchial wall thickening in the right upper lob e, also unchanged. Chronic small right pleural effusion, stable. There is a new 4 mm solid nodule i n the left upper lobe (image 40 of 115). This is indeterminate. Background mild to moderate pulmona ry emphysema, stable. HILAR AND MEDIASTINAL STRUCTURES: Prominent subcarinal lymph nodes are unchanged. No hilar adenopath y. No axillary adenopathy. No mediastinal mass or fluid. HEART AND VASCULAR STRUCTURES: Heart has normal size. Coronary artery stents are noted. Trace peric ardial effusion unchanged. Thoracic aorta has normal caliber. Scattered calcified atherosclerotic p laque. No significant stenosis. HARDWARE: None in the chest. UPPER ABDOMEN: Mild hepatic steatosis. THYROID AND OTHER SOFT TISSUES: No masses. No adenopathy. BONES: Healed right anterior rib fractures are unchanged. No suspicious bone lesions. OTHER: No other significant finding. IMPRESSION: 1. Stable posttreatment changes in the right upper lobe and chronic right pleural effusion, unchanged over multiple previous examinations. 2. Stable mediastinal adenopathy. 3. New indeterminate 4 mm solid nodule in the left upper lobe. This may be infectious or inflammator y or possibly neoplastic. A short-term interval follow-up CT of the chest in 3 months is recommended for re-evaluation. TECHNICAL DOCUMENTATION: JOB ID: [id number] Quality ID # [id number]: Final reports with documentation of one or more dose reduction techniques (e.g., Au tomated exposure control, adjustment of the mA and/or kV according to patient size, use of iterative reconstruction technique) 2010 [employer]- All Rights Reserved Reading location - IP/workstation name: [email or web address]
== END ==
LOC: RAD 10:12
PROVIDERS: ATTEND Internal Medicine
DX: C34.11 Malignant neoplasm of upper lobe, right bronchus or lung (principal)
CPT/HCPCS: 71260; 82565

== ENCOUNTER → 2020-06-22 | Outpatient (CLI) | payer MEDICARE ==
--- NOTE | 2020-06-22 11:25 | RADIOLOGY REPORT (SQ) ---
EXAM DESCRIPTION: CT CHEST WITH IMAGES COMPLETED DATE/TIME: 06/22/2020 9:32 am REASON FOR STUDY: (C34.11)MALIGNANT NEOPLASM OF UPPER LOBE, RIGHT BRONCHUS OR LUNG C34.11 MALIGNANT NEOPLASM OF UPPER LOBE, RIGHT BRONCHUS OR L COMPARISON: 03/19/2020 TECHNIQUE: CT scan of the chest performed using helical scanning technique with dynamic intravenous contrast injection. Images reviewed with lung, soft tissue and bone windows. Reconstructed coronal and sagittal MPR and MIP images reviewed. All images stored on PACS. All CT scanners at this facility use dose modulation, iterative reconstruction, and/or weight based d osing when appropriate to reduce radiation dose to as low as reasonably achievable (ALARA). [facility]: Dose Right [facility]: CareDose [facility]: Dose Right [facility]: Teradose 4D [facility]: E-Diversify Yourself CONTRAST TYPE AND DOSE: contrast/concentration: Isovue 350.00 mmol/ml; Total Contrast Delivered: 80. 0 ml; Total Saline Delivered: 45.0 ml RENAL FUNCTION: Creatinine 0.9 RADIATION DOSE: CT Rad equipment meets quality standard of care and radiation dose reduction techniq ues were employed. CTDIvol: 15.8 mGy. DLP: 582 mGy-cm. . LIMITATIONS: None. FINDINGS: LUNGS AND PLEURA: Grossly stable postoperative changes with the right hemithorax with unch anged suprahilar consolidation and pleural thickening. There is been interval increase in size of 2 left upper lobe pulmonary nodules. For reference largest left upper lobe nodule adjacent to the julio r fissure measures 15 mm (series 4, image 40), previously reported at 4 mm. Additional left upper lo be pulmonary nodule measures 10 mm (series 4, image 45), previously not present. There is a stable l eft lower lobe nodule measuring 6 mm (series 4, image 50). No definitive airspace disease. Trace ri ght effusion and pleural thickening. No pneumothorax. Mild bilateral dependent hypoventilatory bills ge. HILAR AND MEDIASTINAL STRUCTURES: Unchanged right suprahilar consolidation in thickening. Unchanged subcarinal and right paraesophageal node measuring 12 mm in short axis (series 2, image 22). No new discrete mediastinal or hilar adenopathy. No axillary adenopathy. HEART AND VASCULAR STRUCTURES: Normal heart size. Scattered coronary atherosclerosis. No pericardia l effusion. No central pulmonary embolus. HARDWARE: None in the chest. UPPER ABDOMEN: No significant findings. Limited exam. THYROID AND OTHER SOFT TISSUES: No masses. No adenopathy. BONES: No acute bony abnormality. No discrete lytic or blastic osseous lesions. Multiple chronic an terior right-sided rib fractures. OTHER: No other significant finding. IMPRESSION: 1. Grossly stable posttreatment change within the right upper lobe and perihilar region . Stable subcarinal enlarged lymph nodes from prior. 2. New or increased size of 2 left upper lobe pulmonary nodules largest measuring 15 mm. These are suspicious for neoplasm. PET-CT could be considered for further characterization. 3. Coronary atherosclerosis. TECHNICAL DOCUMENTATION: JOB ID: [id number] Quality ID # [id number]: Final reports with documentation of one or more dose reduction techniques (e.g., Au tomated exposure control, adjustment of the mA and/or kV according to patient size, use of iterative reconstruction technique) 2010 [employer]- All Rights Reserved Reading location - IP/workstation name: [email or web address]
== END ==
LOC: RAD 09:00
PROVIDERS: ATTEND Physician Assistant Medical
DX: C34.11 Malignant neoplasm of upper lobe, right bronchus or lung (principal); R91.1 Solitary pulmonary nodule; I25.10 Atherosclerotic heart disease of native coronary artery without angina pectoris
CPT/HCPCS: 71260; 82565